=== PATIENT | female | born 1990 | race African-American/Black ===

== ENCOUNTER 2016-06-15 11:53 | Inpatient (IN) | payer MEDICAID ==
[~2016-06-15] VITALS: Ht 160 cm; Wt 63.0 kg
[~2016-06-15 11:53] MED LIST: AML5T PO; CLON0.2T PO; ONDA4TAB5 PO
[2016-06-15] MEDS ORDERED: PANTOPRAZOLE SODIUM 40 MG/10 ML VIAL IV ONE (12:00)
[2016-06-15] MEDS ORDERED: METOCLOPRAMIDE HCL 5MG/ml INJ 2ml VIAL IV ONE (12:00)
[2016-06-15 13:23] LABS: Basophils # (auto) 0 uL; Basophils % (auto) 0.4 % (0.0-2.0); Eosinophils # (auto) 0 uL; Eosinophils % (auto) 0.4 % (0.0-7.0); Hematocrit 30.6 % (36.0-46.0); Hemoglobin 10.3 g/dL (12.2-16.2); Lymphocytes # (auto) 0.7 uL; Lymphocytes % (auto) 8.2 % (10.0-50.0); Mean Corpuscular Hemoglobin 32.7 pg (28.0-32.0); Mean Corpuscular Hgb Conc. 33.6 g/dL (32.0-36.0); Mean Corpuscular Volume 97.4 fL (80.0-100.0); Mean Platelet Volume 7.1 fL (7.4-10.4); Monocytes # (auto) 0.3 uL; Monocytes % (auto) 3.6 % (0.0-12.0); Neutrophils # (auto) 7.4 uL; Neutrophils % (auto) 87.4 % (37.0-80.0); Platelet Count (auto) 249 10^3/uL (140-450); Red Cell Distribution Width 15.1 % (11.6-16.0); White Blood Cell 8.5 10^3/uL (4.4-10.8)
[2016-06-15 13:37] LABS: Albumin 3.6 g/dL (3.4-5.0); BUN/Creatinine Ratio 5.9; Bilirubin, Total 0.6 mg/dL (0.2-1.0); Calcium 8.8 mg/dL (8.5-10.1); Magnesium 2.9 mg/dL (1.6-2.6); Total Protein 7.3 g/dL (6.4-8.2)
[2016-06-15 13:51] LABS: Potassium 6.3 mmol/L (3.5-5.1)
[2016-06-15] MEDS ORDERED: SODIUM BICARBONATE 8.4 % INJ 50ML VIAL IV ONE (14:00)
[2016-06-15] MEDS ORDERED: DEXTROSE (50%) 50ML SYRG IV ONE (14:00)
[2016-06-15] MEDS ORDERED: InsuLIN REG 1unit/0.01ml Soln (100units/ml) IV ONE (14:00)
[2016-06-15] MEDS ORDERED: CALCIUM GLUC 4.65 MEQ/10ML 4.65 MEQ in SODIUM CHL 0.9% 50 ML IV ONE (14:00)
[2016-06-15] MEDS ORDERED: ONDANSETRON HCL 4 MG/2 ML VIAL IV ONE (15:15)
[2016-06-15] MEDS ORDERED: HYDROmorphone HCL 2 MG/ML VL IV ONE (15:15)
[2016-06-15] MEDS ORDERED: cloNIDine HCL 0.1 MG TAB PO PRN (16:15)
[2016-06-15] MEDS ORDERED: LORazepam 2MG/ML-1ML VIAL IV PRN (16:30)
[2016-06-15] MEDS ORDERED: ACETAMINOPHEN 325 MG TAB PO PRN (16:30)
[2016-06-15] MEDS ORDERED: DOCUSATE SOD 100 MG CAP PO PRN (16:30)
[2016-06-15] MEDS ORDERED: NITROGLYCERIN 0.4 MG SL TAB SL PRN (16:30)
[2016-06-15] MEDS ORDERED: HYDROcodone-ACET 5/325MG TAB PO PRN (16:30)
[2016-06-15] MEDS ORDERED: TEMAZEPAM 15 MG CAP PO PRN (16:30)
[2016-06-15] MEDS: SODIUM CHLORIDE 0.9% 1,000 ML IV SCH (16:40)
[2016-06-15] MEDS ORDERED: amLODIPine BESYLATE 5 MG TAB PO ONE (16:45)
[2016-06-15] MEDS ORDERED: DOXYCYCLINE HYC 100MG/250ML 250 ML IV ONE (16:45)
[2016-06-15] MEDS ORDERED: MULTIPLE VITAMIN TAB PO ONE (16:45)
[2016-06-15] MEDS ORDERED: EPOETIN ALFA 2,000 UNIT/1 ML VIAL IV ONE (17:15)
[2016-06-15] MEDS ORDERED: SODIUM CHL 0.9% 1000 ML BAG XX ONE (17:15)
[2016-06-15] MEDS ORDERED: EPOETIN ALFA 3,000 UNIT/1 ML VIAL IV ONE (17:15)
[2016-06-15] MEDS ORDERED: diphenhdrAMINE HCL 50 MG/1 ML VL IV ONE (18:00)
[2016-06-15 20:09] VITALS: BP 194/126
[2016-06-15] MEDS: cloNIDine HCL 0.1 MG TAB PO SCH ×2 (20:11→21:13)
[2016-06-15 23:30] VITALS: BP 134/81
[2016-06-16] VITALS (7 sets, daily range): BP systolic 150–186; BP diastolic 75–111
[2016-06-16] MEDS: HYDROmorphone HCL 2 MG/ML VL IV PRN ×6 (00:08→21:59)
[2016-06-16] MEDS: ONDANSETRON HCL 4 MG/2 ML VIAL IV PRN ×2 (00:19→05:12)
[2016-06-16] MEDS ORDERED: DOXYCYCLINE HYC 100MG/250ML 250 ML IV SCH (06:00)
[2016-06-16 07:15] LABS: Basophils # (auto) 0 uL; Basophils % (auto) 0.7 % (0.0-2.0); Eosinophils # (auto) 0.1 uL; Eosinophils % (auto) 1.5 % (0.0-7.0); Hematocrit 27.6 % (36.0-46.0); Hemoglobin 9.4 g/dL (12.2-16.2); Lymphocytes # (auto) 1.7 uL; Lymphocytes % (auto) 25.8 % (10.0-50.0); Mean Corpuscular Hemoglobin 33.1 pg (28.0-32.0); Mean Corpuscular Volume 97.3 fL (80.0-100.0); Mean Platelet Volume 7.8 fL (7.4-10.4); Monocytes # (auto) 0.4 uL; Monocytes % (auto) 5.5 % (0.0-12.0); Neutrophils # (auto) 4.3 uL; Neutrophils % (auto) 66.5 % (37.0-80.0); Platelet Count (auto) 173 10^3/uL (140-450); Red Cell Distribution Width 14.9 % (11.6-16.0); SUSPECT VIEW TRANSMISSION; White Blood Cell 6.4 10^3/uL (4.4-10.8)
[2016-06-16] MEDS: SODIUM CHLORIDE 0.9% 1,000 ML IV SCH (08:31)
[2016-06-16] MEDS: amLODIPine BESYLATE 5 MG TAB PO SCH (09:25)
[2016-06-16] MEDS: MULTIPLE VITAMIN TAB PO SCH (09:25)
[2016-06-16] MEDS: FAMOTIDINE 20 MG TAB PO SCH (09:26)
[2016-06-16 09:58] LABS: Albumin 3.1 g/dL (3.4-5.0); Bilirubin, Total 0.6 mg/dL (0.2-1.0); Calcium 8.9 mg/dL (8.5-10.1); Potassium 5.1 mmol/L (3.5-5.1); Total Protein 6.7 g/dL (6.4-8.2)
[2016-06-16] MEDS: cloNIDine HCL 0.1 MG TAB PO SCH (22:00)
[2016-06-17] VITALS (7 sets, daily range): BP systolic 134–175; BP diastolic 72–116
[2016-06-17] MEDS: SODIUM CHLORIDE 0.9% 1,000 ML IV SCH (02:01)
[2016-06-17] MEDS: HYDROmorphone HCL 2 MG/ML VL IV PRN ×4 (03:35→18:19)
[2016-06-17] MEDS ORDERED: SODIUM CHL 0.9% 1000 ML BAG XX ONE (05:45)
[2016-06-17] MEDS ORDERED: EPOETIN ALFA 3,000 UNIT/1 ML VIAL IV ONE (05:45)
[2016-06-17] MEDS ORDERED: EPOETIN ALFA 2,000 UNIT/1 ML VIAL IV ONE (05:45)
[2016-06-17 06:07] LABS: Basophils # (auto) 0 uL; Basophils % (auto) 0.7 % (0.0-2.0); Eosinophils # (auto) 0.2 uL; Eosinophils % (auto) 4.5 % (0.0-7.0); Hematocrit 26.3 % (36.0-46.0); Hemoglobin 8.9 g/dL (12.2-16.2); Lymphocytes # (auto) 1.6 uL; Lymphocytes % (auto) 32.1 % (10.0-50.0); Mean Corpuscular Volume 96.9 fL (80.0-100.0); Mean Platelet Volume 7.8 fL (7.4-10.4); Monocytes # (auto) 0.3 uL; Monocytes % (auto) 6.5 % (0.0-12.0); Neutrophils # (auto) 2.7 uL; Neutrophils % (auto) 56.2 % (37.0-80.0); Platelet Count (auto) 198 10^3/uL (140-450); Red Cell Distribution Width 14.8 % (11.6-16.0); White Blood Cell 4.9 10^3/uL (4.4-10.8)
[2016-06-17] MEDS ORDERED: diphenhdrAMINE HCL 50 MG/1 ML VL IV ONE ×2 (06:30→07:00)
[2016-06-17 06:40] LABS: BUN/Creatinine Ratio 5.5; Calcium 8.7 mg/dL (8.5-10.1); Potassium 5.5 mmol/L (3.5-5.1)
[2016-06-17 06:54] LABS: Magnesium 2.6 mg/dL (1.6-2.6)
[2016-06-17] MEDS: FAMOTIDINE 20 MG TAB PO SCH (09:47)
[2016-06-17] MEDS: amLODIPine BESYLATE 5 MG TAB PO SCH (09:47)
[2016-06-17] MEDS: ONDANSETRON HCL 4 MG/2 ML VIAL IV PRN (09:47)
[2016-06-17] MEDS: MULTIPLE VITAMIN TAB PO SCH (09:47)
[2016-06-17] MEDS: cloNIDine HCL 0.1 MG TAB PO SCH (13:36)
== END 2016-06-17 21:04 | disposition home or self-care (01) | DRG 194 ==
LOC: EDUNIT# 11:53 → EDBD 11:53 → ER 11:56 → TELE 11:57 → TELE-WESTW 23:12
PROVIDERS: ADMIT Internal Medicine; ATTEND Internal Medicine
PROC: 5A1D60Z (ICD-10-PCS; principal; 2016-06-15)
DX: I13.2 Hypertensive heart and chronic kidney disease with heart failure and with stage 5 chronic kidney disease, or end stage renal disease (principal); N18.6 End stage renal disease; E86.0 Dehydration; E87.8 Other disorders of electrolyte and fluid balance, not elsewhere classified; I50.9 Heart failure, unspecified; E87.5 Hyperkalemia; D63.1 Anemia in chronic kidney disease; E83.42 Hypomagnesemia; G40.909 Epilepsy, unspecified, not intractable, without status epilepticus; G89.4 Chronic pain syndrome; N83.209 Unspecified ovarian cyst, unspecified side; M54.5 Low back pain; Z59.0 Homelessness; Z99.2 Dependence on renal dialysis; Z91.19 Patient's noncompliance with other medical treatment and regimen; Z98.890 Other specified postprocedural states; Z88.6 Allergy status to analgesic agent; Z88.1 Allergy status to other antibiotic agents; Z84.89 Family history of other specified conditions; Z90.5 Acquired absence of kidney
CPT/HCPCS: 36415; 80048; 80053; 82962; 83605; 83735; 85025; 87400; 90935; 93005; 96365; 96375; 96376; 99291; C9113; J1642; J2405; J3490; Q4081

== ENCOUNTER 2016-06-25 08:17 | Inpatient (IN) | payer MEDICAID ==
[~2016-06-25] VITALS: Ht 160 cm; Wt 56.6 kg
[2016-06-25] MEDS ORDERED: KETOROLAC TROMETH 30 MG/ML 1ML VIAL IV ONE (09:45)
[2016-06-25] MEDS ORDERED: ONDANSETRON HCL 4 MG/2 ML VIAL IV ONE (09:45)
[2016-06-25 10:03] LABS: Basophils # (auto) 0 uL; Basophils % (auto) 0.4 % (0.0-2.0); Eosinophils # (auto) 0.1 uL; Eosinophils % (auto) 2.1 % (0.0-7.0); Hematocrit 34.4 % (36.0-46.0); Hemoglobin 11.5 g/dL (12.2-16.2); Lymphocytes % (auto) 14.6 % (10.0-50.0); Mean Corpuscular Hemoglobin 32.2 pg (28.0-32.0); Mean Corpuscular Hgb Conc. 33.4 g/dL (32.0-36.0); Mean Corpuscular Volume 96.3 fL (80.0-100.0); Mean Platelet Volume 6.7 fL (7.4-10.4); Monocytes # (auto) 0.6 uL; Monocytes % (auto) 9.6 % (0.0-12.0); Neutrophils # (auto) 4.9 uL; Neutrophils % (auto) 73.3 % (37.0-80.0); Platelet Count (auto) 307 10^3/uL (140-450); Red Cell Distribution Width 15.5 % (11.6-16.0); White Blood Cell 6.7 10^3/uL (4.4-10.8)
[2016-06-25 10:21] LABS: Albumin 4.3 g/dL (3.4-5.0); BUN/Creatinine Ratio 6.3; Bilirubin, Total 0.5 mg/dL (0.2-1.0); Potassium 4.9 mmol/L (3.5-5.1); Total Protein 8.7 g/dL (6.4-8.2)
[2016-06-25 10:28] LABS: INR 1.03 (0.9-1.15); Prothrombin Time 10.6 sec (9.37-12.3)
[2016-06-25] MEDS ORDERED: NITROGLYCERIN 0.4 MG SL TAB SL PRN (12:15)
[2016-06-25] MEDS ORDERED: LORazepam 0.5 MG TAB PO PRN (12:15)
[2016-06-25] MEDS ORDERED: FAMOTIDINE (10MG/ML) 2ML VL IV SCH (12:30)
[2016-06-25] MEDS ORDERED: amLODIPine BESYLATE 5 MG TAB PO ONE (12:45)
[2016-06-25] MEDS ORDERED: cloNIDine HCL 0.1 MG TAB PO ONE (12:45)
[2016-06-25] MEDS ORDERED: cefTRIAXone 1GM/50ML D5W 50 ML IV ONE (12:45)
[2016-06-25] MEDS ORDERED: FAMOTIDINE (10MG/ML) 2ML VL IV ONE (12:45)
[2016-06-25 14:21] VITALS: BP 125/74
[2016-06-25 16:39] VITALS: BP 124/77
[2016-06-25] MEDS: metroNIDAZOLE 500MG/100ML 100 ML IV SCH ×2 (16:43→22:10)
[2016-06-25] MEDS: HYDROmorphone HCL 2 MG/ML VL IV PRN ×2 (18:09→22:10)
[2016-06-25] MEDS: PROMETHAZINE HCL 25 MG/ML 1ML IV PRN ×2 (18:12→22:09)
[2016-06-25 21:30] VITALS: BP 105/56
[2016-06-25] MEDS ORDERED: PATIENTS OWN MEDICATION (Clonidine Hydrochloride (Clonidine Hcl) 1 TAB) PO SCH ×2 (22:00)
[2016-06-25] MEDS: cloNIDine HCL 0.1 MG TAB PO SCH (23:11)
[2016-06-26] MEDS: PROMETHAZINE HCL 25 MG/ML 1ML IV PRN ×3 (02:28→13:16)
[2016-06-26] MEDS: HYDROmorphone HCL 2 MG/ML VL IV PRN ×3 (02:28→13:15)
[2016-06-26 05:00] VITALS: BP 118/70
[2016-06-26 05:37] LABS: Basophils # (auto) 0 uL; Basophils % (auto) 0.7 % (0.0-2.0); Eosinophils # (auto) 0.3 uL; Hematocrit 27.9 % (36.0-46.0); Hemoglobin 9.4 g/dL (12.2-16.2); Lymphocytes # (auto) 1.3 uL; Lymphocytes % (auto) 28.8 % (10.0-50.0); Mean Corpuscular Hemoglobin 32.4 pg (28.0-32.0); Mean Corpuscular Hgb Conc. 33.6 g/dL (32.0-36.0); Mean Corpuscular Volume 96.4 fL (80.0-100.0); Mean Platelet Volume 6.6 fL (7.4-10.4); Monocytes # (auto) 0.5 uL; Monocytes % (auto) 11.6 % (0.0-12.0); Neutrophils # (auto) 2.4 uL; Neutrophils % (auto) 52.9 % (37.0-80.0); Platelet Count (auto) 224 10^3/uL (140-450); Red Cell Distribution Width 15.5 % (11.6-16.0); White Blood Cell 4.6 10^3/uL (4.4-10.8)
[2016-06-26 05:51] LABS: INR 1.07 (0.9-1.15); Partial Thromboplastin Time 27.8 sec (22.64-33.71)
[2016-06-26 06:05] LABS: Albumin 3.4 g/dL (3.4-5.0); BUN/Creatinine Ratio 6.4; Bilirubin, Total 0.5 mg/dL (0.2-1.0); Calcium 9.6 mg/dL (8.5-10.1); Potassium 5.1 mmol/L (3.5-5.1); Total Protein 6.9 g/dL (6.4-8.2)
[2016-06-26] MEDS: metroNIDAZOLE 500MG/100ML 100 ML IV SCH ×2 (06:32→15:53)
[2016-06-26 09:00] VITALS: BP 114/73
[2016-06-26] MEDS ORDERED: cefTRIAXone 1GM/50ML D5W 50 ML IV SCH (09:00)
[2016-06-26] MEDS ORDERED: diphenhdrAMINE HCL 50 MG/1 ML VL IV ONE (09:15)
[2016-06-26] MEDS ORDERED: EPOETIN ALFA 10,000 UNIT/1 ML VIAL IV ONE (09:15)
[2016-06-26] MEDS ORDERED: FAMOTIDINE (10MG/ML) 2ML VL IV SCH (10:00)
[2016-06-26] MEDS ORDERED: amLODIPine BESYLATE 5 MG TAB PO SCH (10:00)
[2016-06-26 13:02] VITALS: BP 134/81
[2016-06-26] MEDS: cloNIDine HCL 0.1 MG TAB PO SCH (15:52)
[2016-06-26 17:17] VITALS: BP 124/87
[2016-06-26 20:07] VITALS: BP 124/87
== END 2016-06-26 20:40 | disposition home or self-care (01) | DRG 282 ==
LOC: EDBD 08:17 → ER 08:21 → TELE 08:22 → TELE-WESTW 14:09
PROVIDERS: ADMIT Internal Medicine; ATTEND Internal Medicine
PROC: 5A1D00Z (ICD-10-PCS; principal; 2016-06-26)
DX: K85.90 Acute pancreatitis without necrosis or infection, unspecified (principal); I13.2 Hypertensive heart and chronic kidney disease with heart failure and with stage 5 chronic kidney disease, or end stage renal disease; N18.6 End stage renal disease; R56.9 Unspecified convulsions; B17.9 Acute viral hepatitis, unspecified; K59.00 Constipation, unspecified; I50.9 Heart failure, unspecified; N93.9 Abnormal uterine and vaginal bleeding, unspecified; Z99.2 Dependence on renal dialysis; Z90.5 Acquired absence of kidney; Z98.890 Other specified postprocedural states; Z84.1 Family history of disorders of kidney and ureter; Z88.1 Allergy status to other antibiotic agents; Z88.5 Allergy status to narcotic agent; Z91.018 Allergy to other foods; Z79.899 Other long term (current) drug therapy
CPT/HCPCS: 36415; 71010; 74176; 76856; 80053; 80061; 82150; 83605; 83690; 84484; 84702; 85025; 85049; 85610; 85730; 87040; 87081; 90935; 96374; 96375; J0696; J0885; J1885; J2405; J3490

== ENCOUNTER 2017-05-02 18:10 | Inpatient (IN) | payer SELFPAY ==
[~2017-05-02] VITALS: Ht 160 cm; Wt 64.3 kg
[2017-05-02] MEDS ORDERED: cloNIDine HCL 0.1 MG TAB PO ONE (18:30)
[2017-05-02 19:04] LABS: Basophils # (auto) 0 uL; Basophils % (auto) 0.6 % (0.0-2.0); Eosinophils # (auto) 0.1 uL; Eosinophils % (auto) 1.3 % (0.0-7.0); Hematocrit 27.2 % (36.0-46.0); Hemoglobin 9.1 g/dL (12.2-16.2); Lymphocytes # (auto) 1.6 uL; Lymphocytes % (auto) 22.3 % (10.0-50.0); Mean Corpuscular Hemoglobin 31.7 pg (28.0-32.0); Mean Corpuscular Hgb Conc. 33.5 g/dL (32.0-36.0); Mean Corpuscular Volume 94.7 fL (80.0-100.0); Mean Platelet Volume 7.9 fL (6.9-10.8); Monocytes # (auto) 0.2 uL; Monocytes % (auto) 3.2 % (0.0-12.0); Neutrophils # (auto) 5.3 uL; Neutrophils % (auto) 72.6 % (37.0-80.0); Nucleated Red Blood Cells % 0.2 %; Platelet Count (auto) 307 10^3/uL (140-450); Red Cell Distribution Width 18.7 % (11.8-14.3); White Blood Cell 7.3 10^3/uL (4.4-10.8)
[2017-05-02 19:24] LABS: Albumin 3.5 g/dL (3.4-5.0); BUN/Creatinine Ratio 7.5; Calcium 8.3 mg/dL (8.5-10.1); Potassium 4.7 mmol/L (3.5-5.1); Total Protein 7.8 g/dL (6.4-8.2)
[2017-05-02] MEDS ORDERED: ONDANSETRON HCL 4 MG/2 ML VIAL IV ONE (19:30)
[2017-05-02] MEDS ORDERED: HYDROmorphone HCL 2 MG/ML VL IV ONE (19:30)
[2017-05-02] MEDS: cloNIDine HCL 0.1 MG TAB PO SCH (20:50)
[2017-05-02] MEDS ORDERED: LACTULOSE 20Gm/30ML SOLN PO PRN (21:00)
[2017-05-02] MEDS: LABETALOL HCL 5 MG/ML ML 20ML VIAL IV PRN (22:53)
[2017-05-02] MEDS ORDERED: HYDROcodone-ACET 5/325MG TAB PO PRN (23:30)
[2017-05-03] VITALS (9 sets, daily range): BP systolic 130–201; BP diastolic 81–126
[2017-05-03] MEDS: HYDROmorphone HCL 2 MG/ML VL IV PRN ×5 (00:07→22:23)
[2017-05-03 03:53] LABS: Basophils # (auto) 0.1 uL; Eosinophils # (auto) 0.1 uL; Hematocrit 25.7 % (36.0-46.0); Hemoglobin 8.5 g/dL (12.2-16.2); Lymphocytes # (auto) 1.7 uL; Lymphocytes % (auto) 21.7 % (10.0-50.0); Mean Corpuscular Hemoglobin 32.5 pg (28.0-32.0); Mean Corpuscular Hgb Conc. 33.2 g/dL (32.0-36.0); Mean Platelet Volume 7.5 fL (6.9-10.8); Monocytes # (auto) 0.3 uL; Neutrophils # (auto) 5.5 uL; Neutrophils % (auto) 72.3 % (37.0-80.0); Nucleated Red Blood Cells % 0.2 %; Platelet Count (auto) 277 10^3/uL (140-450); Red Cell Distribution Width 18.6 % (11.8-14.3); White Blood Cell 7.6 10^3/uL (4.4-10.8)
[2017-05-03 04:19] LABS: Albumin 3.4 g/dL (3.4-5.0); BUN/Creatinine Ratio 7.4; Bilirubin, Total 1.1 mg/dL (0.2-1.0); Calcium 7.8 mg/dL (8.5-10.1); Total Protein 7.6 g/dL (6.4-8.2)
[2017-05-03 04:23] LABS: Potassium 5.8 mmol/L (3.5-5.1)
[2017-05-03] MEDS: SEVELAMER 800 MG TAB PO SCH ×3 (08:41→18:52)
[2017-05-03] MEDS: cloNIDine HCL 0.1 MG TAB PO SCH ×2 (09:55→22:23)
[2017-05-03] MEDS: ONDANSETRON HCL 4 MG/2 ML VIAL IV PRN (10:08)
[2017-05-03] MEDS: DOCUSATE SOD 100 MG CAP PO SCH ×3 (13:15→22:00)
[2017-05-03] MEDS ORDERED: SODIUM CHL 0.9% 1000 ML BAG XX ONE (13:45)
[2017-05-03] MEDS ORDERED: EPOETIN ALFA 10,000 UNIT/1 ML VIAL IV ONE (13:45)
[2017-05-03] MEDS ORDERED: diphenhdrAMINE HCL 25 MG CAP PO ONE (15:15)
[2017-05-03] MEDS ORDERED: diphenhdrAMINE HCL 50 MG/1 ML VL IV ONE ×2 (15:45→16:00)
[2017-05-03] MEDS: LABETALOL HCL 5 MG/ML ML 20ML VIAL IV PRN (18:00)
[2017-05-04] MEDS: HYDROmorphone HCL 2 MG/ML VL IV PRN ×4 (03:41→20:51)
[2017-05-04 05:28] VITALS: BP 137/95
[2017-05-04 06:20] LABS: Basophils # (auto) 0.1 uL; Eosinophils # (auto) 0.2 uL; Eosinophils % (auto) 2.7 % (0.0-7.0); Hematocrit 20.9 % (36.0-46.0); Lymphocytes # (auto) 1.2 uL; Lymphocytes % (auto) 22.1 % (10.0-50.0); Mean Corpuscular Hemoglobin 32.8 pg (28.0-32.0); Mean Corpuscular Hgb Conc. 33.6 g/dL (32.0-36.0); Mean Corpuscular Volume 97.8 fL (80.0-100.0); Mean Platelet Volume 7.3 fL (6.9-10.8); Monocytes # (auto) 0.3 uL; Monocytes % (auto) 4.6 % (0.0-12.0); Neutrophils # (auto) 3.8 uL; Neutrophils % (auto) 68.6 % (37.0-80.0); Nucleated Red Blood Cells % 0.3 %; Platelet Count (auto) 254 10^3/uL (140-450); Red Cell Distribution Width 18.8 % (11.8-14.3); White Blood Cell 5.5 10^3/uL (4.4-10.8)
[2017-05-04 06:52] LABS: BUN/Creatinine Ratio 6.3; Bilirubin, Total 0.4 mg/dL (0.2-1.0); Calcium 8.3 mg/dL (8.5-10.1); Potassium 3.9 mmol/L (3.5-5.1); Total Protein 6.6 g/dL (6.4-8.2)
[2017-05-04 08:44] VITALS: BP 146/103
[2017-05-04] MEDS: DOCUSATE SOD 100 MG CAP PO SCH ×2 (10:00→21:41)
[2017-05-04] MEDS: SEVELAMER 800 MG TAB PO SCH ×3 (10:05→18:46)
[2017-05-04] MEDS: cloNIDine HCL 0.1 MG TAB PO SCH ×2 (10:08→21:43)
[2017-05-04] MEDS ORDERED: amLODIPine BESYLATE 5 MG TAB PO ONE (12:45)
[2017-05-04 13:12] LABS: Hepatitis B Surface Antibody Positive
[2017-05-04 14:08] VITALS: BP 147/105
[2017-05-04 15:51] LABS: Hemoglobin 7.9 g/dL (12.2-16.2)
[2017-05-04 16:07] LABS: Hematocrit 23.7 % (36.0-46.0)
[2017-05-04] MEDS ORDERED: SODIUM CHL 0.9% 1000 ML BAG XX ONE (16:45)
[2017-05-04 17:19] VITALS: BP 151/100
[2017-05-04 22:00] VITALS: BP 143/92
[2017-05-05] MEDS: HYDROmorphone HCL 2 MG/ML VL IV PRN ×4 (01:04→22:01)
[2017-05-05 06:32] LABS: Basophils # (auto) 0 uL; Eosinophils # (auto) 0.2 uL; Lymphocytes # (auto) 1.3 uL; Mean Platelet Volume 7.6 fL (6.9-10.8)
[2017-05-05 06:33] LABS: Eosinophils % (auto) 4.4 % (0.0-7.0); Hematocrit 24.2 % (36.0-46.0); Hemoglobin 8.3 g/dL (12.2-16.2); Lymphocytes % (auto) 34.1 % (10.0-50.0); Mean Corpuscular Hemoglobin 33.3 pg (28.0-32.0); Mean Corpuscular Hgb Conc. 34.2 g/dL (32.0-36.0); Mean Corpuscular Volume 97.5 fL (80.0-100.0); Monocytes # (auto) 0.2 uL; Monocytes % (auto) 6.2 % (0.0-12.0); Neutrophils # (auto) 2.1 uL; Neutrophils % (auto) 54.3 % (37.0-80.0); Nucleated Red Blood Cells % 0.2 %; Platelet Count (auto) 233 10^3/uL (140-450); Red Cell Distribution Width 19.2 % (11.8-14.3); White Blood Cell 3.9 10^3/uL (4.4-10.8)
[2017-05-05 07:16] LABS: BUN/Creatinine Ratio 6.4; Bilirubin, Total 0.7 mg/dL (0.2-1.0); Calcium 9.1 mg/dL (8.5-10.1); Magnesium 3.1 mg/dL (1.6-2.6); Total Protein 6.7 g/dL (6.4-8.2)
[2017-05-05 09:00] VITALS: BP 143/102
[2017-05-05] MEDS: DOCUSATE SOD 100 MG CAP PO SCH ×2 (10:04→22:00)
[2017-05-05] MEDS: cloNIDine HCL 0.1 MG TAB PO SCH ×4 (10:05→22:00)
[2017-05-05] MEDS: amLODIPine BESYLATE 5 MG TAB PO SCH (10:05)
[2017-05-05] MEDS: SEVELAMER 800 MG TAB PO SCH ×3 (10:05→18:00)
[2017-05-05] MEDS ORDERED: diphenhdrAMINE HCL 50 MG/1 ML VL IV ONE (11:45)
[2017-05-05] MEDS ORDERED: EPOETIN ALFA 10,000 UNIT/1 ML VIAL IV ONE (11:45)
[2017-05-05 13:00] VITALS: BP 132/97
[2017-05-05 17:00] VITALS: BP 142/98
[2017-05-05 22:00] VITALS: BP 143/104
[2017-05-06] MEDS: HYDROmorphone HCL 2 MG/ML VL IV PRN ×3 (02:15→12:53)
[2017-05-06 05:00] VITALS: BP 129/91
[2017-05-06] MEDS: cloNIDine HCL 0.1 MG TAB PO SCH ×2 (06:17→14:25)
[2017-05-06 08:59] LABS: Hemoglobin 7.3 g/dL (12.2-16.2)
[2017-05-06 09:00] VITALS: BP 117/65
[2017-05-06 09:02] LABS: Hematocrit 21.7 % (36.0-46.0)
[2017-05-06] MEDS: DOCUSATE SOD 100 MG CAP PO SCH (09:05)
[2017-05-06] MEDS: SEVELAMER 800 MG TAB PO SCH ×3 (09:05→18:00)
[2017-05-06] MEDS: amLODIPine BESYLATE 5 MG TAB PO SCH (09:05)
[2017-05-06] MEDS: ONDANSETRON HCL 4 MG/2 ML VIAL IV PRN (09:06)
[2017-05-06 09:19] LABS: Albumin 2.7 g/dL (3.4-5.0); BUN/Creatinine Ratio 6.3; Bilirubin, Total 0.4 mg/dL (0.2-1.0); Calcium 8.8 mg/dL (8.5-10.1); Potassium 4.3 mmol/L (3.5-5.1); Total Protein 6.3 g/dL (6.4-8.2)
[2017-05-06] MEDS ORDERED: DOCU100C8 PO (10:54)
[2017-05-06] MEDS ORDERED: CLON0.2T PO (10:54)
[2017-05-06] MEDS ORDERED: AML5T PO (10:54)
[2017-05-06] MEDS ORDERED: SEVE800T PO (10:54)
[2017-05-06 13:00] VITALS: BP 143/94
[2017-05-06 15:00] VITALS: BP 143/94
[2017-05-06 17:00] VITALS: BP 131/86
== END 2017-05-06 18:35 | disposition home or self-care (01) | DRG 291 ==
LOC: EDBD 18:10 → ER 18:10 → TELE 18:11 → TELE-EAST 05-03 04:02
PROVIDERS: ADMIT Nurse Practitioner; ATTEND Internal Medicine
PROC: 5A1D70Z Performance of Urinary Filtration, Intermittent, Less than 6 Hours Per Day (ICD-10-PCS; principal; 2017-05-03)
PROC: 5A1D70Z Performance of Urinary Filtration, Intermittent, Less than 6 Hours Per Day (ICD-10-PCS; 2017-05-05)
DX: I13.2 Hypertensive heart and chronic kidney disease with heart failure and with stage 5 chronic kidney disease, or end stage renal disease (principal); N18.6 End stage renal disease; E87.5 Hyperkalemia; I50.9 Heart failure, unspecified; K59.00 Constipation, unspecified; G40.909 Epilepsy, unspecified, not intractable, without status epilepticus; R79.89 Other specified abnormal findings of blood chemistry; D63.1 Anemia in chronic kidney disease; Z88.1 Allergy status to other antibiotic agents; Z88.5 Allergy status to narcotic agent; Z91.018 Allergy to other foods; Z84.1 Family history of disorders of kidney and ureter; Z99.2 Dependence on renal dialysis; Z91.14 Patient's other noncompliance with medication regimen
CPT/HCPCS: 36415; 74176; 76705; 80053; 83690; 83735; 84702; 85014; 85018; 85025; 86704; 86706; 86708; 86803; 87081; 87340; 90935; 93005; 94761; 96374; 96375; 96376; J0885; J1642; J2405

== ENCOUNTER 2017-06-24 10:48 | Inpatient (IN) | payer MEDICAID ==
[~2017-06-24] VITALS: Ht 160 cm; Wt 65.3 kg
[~2017-06-24 10:48] MED LIST changes: +DOCU100C8 PO; -ONDA4TAB5 PO; +SEVE800T PO
[2017-06-24] MEDS ORDERED: ONDANSETRON HCL 4 MG/2 ML VIAL IV ONE (11:00)
[2017-06-24] MEDS ORDERED: HYDROmorphone HCL 2 MG/ML VL IV ONE (11:00)
[2017-06-24 11:54] LABS: Basophils # (auto) 0 uL; Basophils % (auto) 0.7 % (0.0-2.0); Eosinophils # (auto) 0.1 uL; Eosinophils % (auto) 1.2 % (0.0-7.0); Hematocrit 30.3 % (36.0-46.0); Hemoglobin 9.6 g/dL (12.2-16.2); Lymphocytes # (auto) 0.9 uL; Lymphocytes % (auto) 15.8 % (10.0-50.0); Mean Corpuscular Hemoglobin 32.2 pg (28.0-32.0); Mean Corpuscular Hgb Conc. 31.6 g/dL (32.0-36.0); Monocytes # (auto) 0.1 uL; Monocytes % (auto) 2.4 % (0.0-12.0); Neutrophils # (auto) 4.4 uL; Neutrophils % (auto) 79.9 % (37.0-80.0); Nucleated Red Blood Cells % 0.3 %; Platelet Count (auto) 162 10^3/uL (140-450); Red Blood Cells 2.97 10^6/uL (4.0-5.20); Red Cell Distribution Width 18.5 % (11.8-14.3); White Blood Cell 5.5 10^3/uL (4.4-10.8)
[2017-06-24 12:26] LABS: Albumin 3.4 g/dL (3.4-5.0); BUN/Creatinine Ratio 4.1; Calcium 9.2 mg/dL (8.5-10.1); Magnesium 2.9 mg/dL (1.6-2.6); Potassium 3.5 mmol/L (3.5-5.1); Total Protein 7.1 g/dL (6.4-8.2)
[2017-06-24] MEDS ORDERED: ACETAMINOPHEN 500 MG TAB PO PRN (13:30)
[2017-06-24] MEDS ORDERED: LACTULOSE 20Gm/30ML SOLN PO PRN ×2 (13:30)
[2017-06-24] MEDS ORDERED: LORazepam 0.5 MG TAB PO PRN (13:30)
[2017-06-24] MEDS ORDERED: NITROGLYCERIN 0.4 MG SL TAB SL PRN (13:30)
[2017-06-24] MEDS ORDERED: ALBUTEROL SULF 2.5 MG/0.5ML(0.5%) NEB SOLN NEB PRN (13:30)
[2017-06-24] MEDS ORDERED: METOPROLOL TARTRATE 25 MG TAB PO ONE (14:00)
[2017-06-24] MEDS ORDERED: DOCUSATE SOD 100 MG CAP PO ONE (14:00)
[2017-06-24] MEDS ORDERED: ASPirin 81 mg TAB PO ONE (14:00)
[2017-06-24] MEDS ORDERED: OSELTAMIVIR 30 MG CAP PO ONE (14:00)
[2017-06-24] MEDS ORDERED: amLODIPine BESYLATE 5 MG TAB PO ONE (14:00)
[2017-06-24 14:24] VITALS: BP 192/144
[2017-06-24] MEDS: cefTRIAXone 1GM/10ml IVPUSH 10 ML IV SCH (14:37)
[2017-06-24] MEDS: SODIUM CHLOR 0.9% PF (SALINE LOCK) 10ML VIAL IV SCH ×2 (14:37→22:07)
[2017-06-24] MEDS: cloNIDine HCL 0.1 MG TAB PO SCH ×2 (14:38→22:06)
[2017-06-24] MEDS: AZITHROMYCIN 500MG/ 250ML 250 ML IV SCH ×2 (14:38→15:03)
[2017-06-24] MEDS: PROMETHAZINE HCL 25 MG/ML 1ML IV PRN ×2 (15:03→23:06)
[2017-06-24] MEDS: HYDROmorphone HCL 2 MG/ML VL IV PRN ×2 (15:03→23:06)
[2017-06-24] MEDS: SEVELAMER 800 MG TAB PO SCH (18:00)
[2017-06-24 18:33] LABS: INR 1.13 (0.9-1.15); Prothrombin Time 12.3 sec (9.37-12.3)
[2017-06-24] MEDS ORDERED: diphenhdrAMINE HCL 25 MG CAP PO PRN (19:15)
[2017-06-24 20:00] VITALS: BP 141/95
[2017-06-24 20:20] VITALS: BP 141/95
[2017-06-24] MEDS: HYDROcodone-ACET 5/325MG TAB PO PRN (21:01)
[2017-06-24 22:00] VITALS: BP 141/95
[2017-06-24] MEDS: DOCUSATE SOD 100 MG CAP PO SCH (22:07)
[2017-06-24] MEDS: ATORVASTATIN 20 MG TAB PO SCH (22:07)
[2017-06-24] MEDS: METOPROLOL TARTRATE 25 MG TAB PO SCH (22:07)
[2017-06-24] MEDS: HEPARIN SODIUM (PORCINE) 5000 UNITS/ML 1ML VIAL SC SCH (22:09)
[2017-06-24] MEDS ORDERED: MEGE40TA15 PO (22:40)
[2017-06-24] MEDS ORDERED: PRO10T PO (22:40)
[2017-06-24] MEDS ORDERED: METO-158 PO (22:40)
[2017-06-25 05:00] VITALS: BP 115/82
[2017-06-25] MEDS: HYDROmorphone HCL 2 MG/ML VL IV PRN ×6 (05:18→22:59)
[2017-06-25] MEDS: PROMETHAZINE HCL 25 MG/ML 1ML IV PRN (05:19)
[2017-06-25] MEDS: SODIUM CHLOR 0.9% PF (SALINE LOCK) 10ML VIAL IV SCH ×3 (06:21→22:44)
[2017-06-25] MEDS: cloNIDine HCL 0.1 MG TAB PO SCH ×3 (06:21→22:44)
[2017-06-25 08:00] VITALS: BP 133/81
[2017-06-25] MEDS: SEVELAMER 800 MG TAB PO SCH ×3 (08:20→17:31)
[2017-06-25] MEDS: cefTRIAXone 1GM/10ml IVPUSH 10 ML IV SCH (08:28)
[2017-06-25 09:00] VITALS: BP 133/81
[2017-06-25] MEDS ORDERED: SODIUM CHL 0.9% 1000 ML BAG XX ONE (09:30)
[2017-06-25] MEDS ORDERED: EPOETIN ALFA 10,000 UNIT/1 ML VIAL IV ONE (09:30)
[2017-06-25] MEDS: ASPirin 81 mg TAB PO SCH (09:38)
[2017-06-25] MEDS: DOCUSATE SOD 100 MG CAP PO SCH ×2 (09:38→22:00)
[2017-06-25] MEDS: amLODIPine BESYLATE 5 MG TAB PO SCH (09:38)
[2017-06-25] MEDS: METOPROLOL TARTRATE 25 MG TAB PO SCH ×2 (09:39→22:43)
[2017-06-25] MEDS: HEPARIN SODIUM (PORCINE) 5000 UNITS/ML 1ML VIAL SC SCH ×3 (10:00→22:49)
[2017-06-25] MEDS ORDERED: OSELTAMIVIR 30 MG CAP PO SCH (10:00)
[2017-06-25 10:40] LABS: Cholesterol 99 mg/dL (< 200); HDL Cholesterol 35 mg/dL (40-59); LDL Cholesterol 60 mg/dL (< 100); Triglycerides 103 mg/dL (< 150)
[2017-06-25 13:00] VITALS: BP 118/83
[2017-06-25] MEDS: NITROGLYCERIN 0.2MG/HR TOPICAL PATCH TD SCH (14:10)
[2017-06-25 16:56] VITALS: BP 148/95
[2017-06-25] MEDS: ATORVASTATIN 20 MG TAB PO SCH (22:42)
[2017-06-25 23:20] VITALS: BP 135/85
[2017-06-26] MEDS: TEMAZEPAM 15 MG CAP PO PRN ×2 (01:13→23:57)
[2017-06-26] MEDS: HYDROmorphone HCL 2 MG/ML VL IV PRN ×5 (03:48→22:37)
[2017-06-26 05:09] VITALS: BP 133/94
[2017-06-26] MEDS: cloNIDine HCL 0.1 MG TAB PO SCH ×3 (06:25→22:00)
[2017-06-26] MEDS: SODIUM CHLOR 0.9% PF (SALINE LOCK) 10ML VIAL IV SCH ×3 (06:25→22:13)
[2017-06-26 08:00] VITALS: BP 125/90
[2017-06-26] MEDS: SEVELAMER 800 MG TAB PO SCH ×3 (08:59→18:28)
[2017-06-26 09:00] VITALS: BP 125/90
[2017-06-26] MEDS: cefTRIAXone 1GM/10ml IVPUSH 10 ML IV SCH (09:04)
[2017-06-26] MEDS: DOCUSATE SOD 100 MG CAP PO SCH ×2 (10:00→22:00)
[2017-06-26] MEDS: AZITHROMYCIN 500MG/ 250ML 250 ML IV SCH (11:10)
[2017-06-26] MEDS: ASPirin 81 mg TAB PO SCH (11:11)
[2017-06-26] MEDS: METOPROLOL TARTRATE 25 MG TAB PO SCH ×2 (11:12→22:12)
[2017-06-26] MEDS: amLODIPine BESYLATE 5 MG TAB PO SCH (11:13)
[2017-06-26] MEDS: NITROGLYCERIN 0.2MG/HR TOPICAL PATCH TD SCH (11:14)
[2017-06-26] MEDS: HYDROcodone-ACET 5/325MG TAB PO PRN (12:44)
[2017-06-26 13:00] VITALS: BP 129/86
[2017-06-26] MEDS ORDERED: KETOROLAC TROMETH 30 MG/ML 1ML VIAL IV ONE (13:45)
[2017-06-26] MEDS: PROMETHAZINE HCL 25 MG/ML 1ML IV PRN ×2 (18:28→22:37)
[2017-06-26 18:35] VITALS: BP 117/79
[2017-06-26 22:00] VITALS: BP 116/74
[2017-06-26] MEDS: ATORVASTATIN 20 MG TAB PO SCH (22:12)
[2017-06-27] VITALS (13 sets, daily range): BP systolic 110–150; BP diastolic 61–109
[2017-06-27] MEDS: HYDROmorphone HCL 2 MG/ML VL IV PRN ×4 (04:08→22:10)
[2017-06-27] MEDS: PROMETHAZINE HCL 25 MG/ML 1ML IV PRN ×4 (04:09→22:10)
[2017-06-27] MEDS: SODIUM CHLOR 0.9% PF (SALINE LOCK) 10ML VIAL IV SCH ×3 (06:28→22:08)
[2017-06-27] MEDS: cloNIDine HCL 0.1 MG TAB PO SCH ×3 (06:29→22:09)
[2017-06-27] MEDS: SEVELAMER 800 MG TAB PO SCH ×3 (08:00→17:36)
[2017-06-27] MEDS: cefTRIAXone 1GM/10ml IVPUSH 10 ML IV SCH (08:29)
[2017-06-27] MEDS ORDERED: LIDOCAINE 2%HCL (LOCAL ANESTH.) INJ 20ML MDV ONE (09:13)
[2017-06-27] MEDS ORDERED: IOHEXOL 350 MG/ML 100ML IJ ONE (09:13)
[2017-06-27] MEDS ORDERED: MIDAZOLAM HCL 1MG/1ML-2 ML VIAL ONE (09:33)
[2017-06-27] MEDS ORDERED: fentaNYL CITRATE 100 MCG/2 ML VL ONE (09:33)
[2017-06-27] MEDS ORDERED: ANGIOMAX 250 MG VIAL IV ONE (09:33)
[2017-06-27] MEDS ORDERED: IODIXANOL 320MG/ML 100ML BTL IV ONE (09:38)
[2017-06-27] MEDS: ASPirin 81 mg TAB PO SCH (10:00)
[2017-06-27] MEDS: HEPARIN SODIUM (PORCINE) 5000 UNITS/ML 1ML VIAL SC SCH ×2 (10:00→22:00)
[2017-06-27] MEDS: DOCUSATE SOD 100 MG CAP PO SCH ×2 (10:00→22:00)
[2017-06-27 11:35] LABS: Basophils # (auto) 0.1 uL; Basophils % (auto) 1.3 % (0.0-2.0); Eosinophils # (auto) 0.4 uL; Eosinophils % (auto) 8.5 % (0.0-7.0); Hematocrit 28.2 % (36.0-46.0); Hemoglobin 9.2 g/dL (12.2-16.2); Lymphocytes # (auto) 1.4 uL; Lymphocytes % (auto) 30.6 % (10.0-50.0); Mean Corpuscular Hemoglobin 31.9 pg (28.0-32.0); Mean Corpuscular Hgb Conc. 32.4 g/dL (32.0-36.0); Mean Corpuscular Volume 98.5 fL (80.0-100.0); Monocytes # (auto) 0.3 uL; Monocytes % (auto) 7.7 % (0.0-12.0); Neutrophils # (auto) 2.3 uL; Neutrophils % (auto) 51.9 % (37.0-80.0); Nucleated Red Blood Cells % 0.1 %; Platelet Count (auto) 192 10^3/uL (140-450); Red Blood Cells 2.87 10^6/uL (4.0-5.20); Red Cell Distribution Width 17.1 % (11.8-14.3); White Blood Cell 4.4 10^3/uL (4.4-10.8)
[2017-06-27] MEDS: amLODIPine BESYLATE 5 MG TAB PO SCH (11:48)
[2017-06-27 11:59] LABS: BUN/Creatinine Ratio 4.1; Calcium 8.8 mg/dL (8.5-10.1); Potassium 3.5 mmol/L (3.5-5.1)
[2017-06-27] MEDS: AZITHROMYCIN 500MG/ 250ML 250 ML IV SCH (12:47)
[2017-06-27] MEDS: METOPROLOL TARTRATE 25 MG TAB PO SCH ×2 (12:48→22:00)
[2017-06-27] MEDS: NITROGLYCERIN 0.2MG/HR TOPICAL PATCH TD SCH (13:07)
[2017-06-27 18:59] LABS: Free T4 (Free Thyroxine) 1.23 ng/dL (0.89-1.76); T3 Total 0.98 ng/mL (0.60-1.81)
[2017-06-27] MEDS: ATORVASTATIN 20 MG TAB PO SCH (22:09)
[2017-06-28] MEDS: TEMAZEPAM 15 MG CAP PO PRN (01:24)
[2017-06-28 05:00] VITALS: BP 124/84
[2017-06-28] MEDS: cloNIDine HCL 0.1 MG TAB PO SCH ×2 (05:40→15:17)
[2017-06-28] MEDS: SODIUM CHLOR 0.9% PF (SALINE LOCK) 10ML VIAL IV SCH ×2 (05:41→14:39)
[2017-06-28] MEDS: HYDROmorphone HCL 2 MG/ML VL IV PRN ×2 (06:33→12:42)
[2017-06-28] MEDS: PROMETHAZINE HCL 25 MG/ML 1ML IV PRN ×2 (06:33→12:43)
[2017-06-28 08:26] VITALS: BP 136/89
[2017-06-28 09:04] VITALS: BP 136/89
[2017-06-28] MEDS: SEVELAMER 800 MG TAB PO SCH ×2 (09:45→12:32)
[2017-06-28] MEDS: ASPirin 81 mg TAB PO SCH (09:46)
[2017-06-28] MEDS: amLODIPine BESYLATE 5 MG TAB PO SCH (09:46)
[2017-06-28] MEDS: METOPROLOL TARTRATE 25 MG TAB PO SCH (09:46)
[2017-06-28] MEDS: cefTRIAXone 1GM/10ml IVPUSH 10 ML IV SCH (09:47)
[2017-06-28] MEDS: HEPARIN SODIUM (PORCINE) 5000 UNITS/ML 1ML VIAL SC SCH (09:47)
[2017-06-28] MEDS: AZITHROMYCIN 500MG/ 250ML 250 ML IV SCH (09:47)
[2017-06-28] MEDS: DOCUSATE SOD 100 MG CAP PO SCH (09:48)
[2017-06-28] MEDS ORDERED: SODIUM CHL 0.9% 1000 ML BAG XX ONE (10:00)
[2017-06-28] MEDS ORDERED: EPOETIN ALFA 10,000 UNIT/1 ML VIAL IV ONE (10:00)
[2017-06-28] MEDS ORDERED: diphenhdrAMINE HCL 50 MG/1 ML VL IV ONE ×2 (10:15→11:30)
[2017-06-28 14:59] VITALS: BP 128/78
[2017-06-28 16:43] VITALS: BP 136/89
[2017-06-28 17:00] VITALS: BP 130/94
== END 2017-06-28 17:35 | disposition home or self-care (01) | DRG 192 ==
LOC: EDBD 10:48 → ER 10:48 → TELE 10:49 → TELE-WESTW 19:43
PROVIDERS: ADMIT Internal Medicine; ATTEND Internal Medicine Pulmonary Disease
PROC: 5A1D70Z Performance of Urinary Filtration, Intermittent, Less than 6 Hours Per Day (ICD-10-PCS; 2017-06-25)
PROC: 4A023N7 Measurement of Cardiac Sampling and Pressure, Left Heart, Percutaneous Approach (ICD-10-PCS; principal; 2017-06-27)
PROC: B2111ZZ Fluoroscopy of Multiple Coronary Arteries using Low Osmolar Contrast (ICD-10-PCS; 2017-06-27)
PROC: B2151ZZ Fluoroscopy of Left Heart using Low Osmolar Contrast (ICD-10-PCS; 2017-06-27)
PROC: B41F1ZZ Fluoroscopy of Right Lower Extremity Arteries using Low Osmolar Contrast (ICD-10-PCS; 2017-06-27)
PROC: 5A1D70Z Performance of Urinary Filtration, Intermittent, Less than 6 Hours Per Day (ICD-10-PCS; 2017-06-28)
DX: I13.2 Hypertensive heart and chronic kidney disease with heart failure and with stage 5 chronic kidney disease, or end stage renal disease (principal); J18.9 Pneumonia, unspecified organism; N18.6 End stage renal disease; E87.1 Hypo-osmolality and hyponatremia; D63.1 Anemia in chronic kidney disease; F41.9 Anxiety disorder, unspecified; G40.909 Epilepsy, unspecified, not intractable, without status epilepticus; K59.00 Constipation, unspecified; G47.00 Insomnia, unspecified; Z99.2 Dependence on renal dialysis; Z59.0 Homelessness; Z90.5 Acquired absence of kidney; Z91.15 Patient's noncompliance with renal dialysis; Z88.1 Allergy status to other antibiotic agents; Z88.5 Allergy status to narcotic agent; Z91.018 Allergy to other foods; Z79.899 Other long term (current) drug therapy; Z84.1 Family history of disorders of kidney and ureter
CPT/HCPCS: 93458; 96365; 96375; 99285; G0278; 36415; 36600; 71046; 80048; 80053; 80061; 82550; 82805; 83516; 83735; 84439; 84443; 84480; 84484; 85025; 85379; 85610; 85652; 86141; 86225; 86235; 87081; 87400; 90935; 93005; 93306; 94761; 99152; G9035; J0885; J1642; J2250; J2405; Q9967

== ENCOUNTER 2017-07-04 21:15 | Inpatient (IN) | payer MEDICAID ==
[~2017-07-04] VITALS: Ht 160 cm; Wt 59.6 kg
[~2017-07-04 21:15] MED LIST changes: +MEGE40TA15 PO; +METO-158 PO; +PRO10T PO
[2017-07-04] MEDS ORDERED: SODIUM CHLORIDE 0.9% 1,000 ML IV ONE (22:45)
[2017-07-04] MEDS ORDERED: MORPHINE SULFATE 10 MG/ML INJ 1ML SDV IV ONE (22:45)
[2017-07-04] MEDS ORDERED: ONDANSETRON HCL 4 MG/2 ML VIAL IV ONE (22:45)
[2017-07-04 22:48] LABS: Basophils # (auto) 0.1 uL; Eosinophils # (auto) 0.1 uL; Eosinophils % (auto) 0.5 % (0.0-7.0); Hematocrit 33.4 % (36.0-46.0); Lymphocytes # (auto) 0.8 uL; Lymphocytes % (auto) 5.8 % (10.0-50.0); Mean Corpuscular Hemoglobin 31.7 pg (28.0-32.0); Mean Corpuscular Hgb Conc. 32.9 g/dL (32.0-36.0); Mean Corpuscular Volume 96.4 fL (80.0-100.0); Monocytes # (auto) 0.5 uL; Monocytes % (auto) 3.3 % (0.0-12.0); Neutrophils # (auto) 12.6 uL; Neutrophils % (auto) 89.4 % (37.0-80.0); Nucleated Red Blood Cells % 0.1 %; Platelet Count (auto) 332 10^3/uL (140-450); Red Blood Cells 3.47 10^6/uL (4.0-5.20); Red Cell Distribution Width 17.3 % (11.8-14.3); White Blood Cell 14.1 10^3/uL (4.4-10.8)
[2017-07-04] MEDS ORDERED: HYDROmorphone HCL 2 MG/ML VL IV ONE (23:00)
[2017-07-04 23:02] LABS: Albumin 4.2 g/dL (3.4-5.0); BUN/Creatinine Ratio 4.3; Calcium 10.2 mg/dL (8.5-10.1); Potassium 4.1 mmol/L (3.5-5.1)
[2017-07-04] MEDS ORDERED: HYDROmorphone HCL 2 MG/ML VL ONE (23:03)
[2017-07-04 23:05] LABS: Bilirubin, Total 1.3 mg/dL (0.2-1.0); Total Protein 8.6 g/dL (6.4-8.2)
[2017-07-05] MEDS ORDERED: PROMETHAZINE HCL 25 MG/ML 1ML IV ONE (01:15)
[2017-07-05] MEDS ORDERED: HYDROmorphone HCL 2 MG/ML VL IV ONE ×3 (01:15→21:00)
[2017-07-05] MEDS ORDERED: LACTULOSE 20Gm/30ML SOLN PO PRN (04:15)
[2017-07-05] MEDS ORDERED: ONDANSETRON HCL 4 MG/2 ML VIAL IV PRN (04:15)
[2017-07-05] MEDS ORDERED: cloNIDine HCL 0.1 MG TAB PO PRN (04:15)
[2017-07-05] MEDS ORDERED: ACETAMINOPHEN 500 MG TAB PO PRN (04:15)
[2017-07-05 05:02] LABS: Basophils # (auto) 0.1 uL; Basophils % (auto) 0.4 % (0.0-2.0); Eosinophils # (auto) 0 uL; Eosinophils % (auto) 0.1 % (0.0-7.0); Hematocrit 29.5 % (36.0-46.0); Hemoglobin 9.8 g/dL (12.2-16.2); Lymphocytes # (auto) 0.7 uL; Lymphocytes % (auto) 4.5 % (10.0-50.0); Mean Corpuscular Hemoglobin 32.6 pg (28.0-32.0); Mean Corpuscular Hgb Conc. 33.2 g/dL (32.0-36.0); Mean Corpuscular Volume 98.2 fL (80.0-100.0); Monocytes # (auto) 0.3 uL; Monocytes % (auto) 2.4 % (0.0-12.0); Neutrophils # (auto) 13.5 uL; Neutrophils % (auto) 92.6 % (37.0-80.0); Platelet Count (auto) 265 10^3/uL (140-450); Red Cell Distribution Width 17.6 % (11.8-14.3); White Blood Cell 14.5 10^3/uL (4.4-10.8)
[2017-07-05 05:22] LABS: Albumin 3.6 g/dL (3.4-5.0); BUN/Creatinine Ratio 4.3; Calcium 9.1 mg/dL (8.5-10.1); Potassium 5.4 mmol/L (3.5-5.1)
[2017-07-05 05:25] LABS: Bilirubin, Total 1.1 mg/dL (0.2-1.0); Total Protein 7.5 g/dL (6.4-8.2)
[2017-07-05] MEDS ORDERED: LABETALOL HCL 5 MG/ML ML 20ML VIAL IV PRN (07:30)
[2017-07-05] MEDS: SEVELAMER 800 MG TAB PO SCH ×3 (07:37→18:07)
[2017-07-05] MEDS: cloNIDine HCL 0.1 MG TAB PO SCH ×3 (07:41→22:12)
[2017-07-05] MEDS ORDERED: amLODIPine BESYLATE 5 MG TAB PO SCH (10:00)
[2017-07-05] MEDS ORDERED: METOPROLOL TARTRATE 25 MG TAB PO SCH (10:00)
[2017-07-05] MEDS ORDERED: METOPROLOL TARTRATE 50 MG TAB PO SCH (10:00)
[2017-07-05] MEDS ORDERED: HEPARIN SODIUM (PORCINE) 5000 UNITS/ML 1ML VIAL IV ONE (10:30)
[2017-07-05] MEDS ORDERED: EPOETIN ALFA 10,000 UNIT/1 ML VIAL IV ONE (10:30)
[2017-07-05 13:30] VITALS: BP 171/106
[2017-07-05] MEDS: AZITHROMYCIN 500MG/ 250ML 250 ML IV SCH (13:37)
[2017-07-05] MEDS: HYDROcodone-ACET 5/325MG TAB PO PRN ×2 (13:38→18:07)
[2017-07-05 14:08] VITALS: BP 181/96
[2017-07-05 14:50] VITALS: BP 171/106
[2017-07-05 16:43] VITALS: BP 135/82
[2017-07-05 19:49] LABS: Basophils # (auto) 0.1 uL; Eosinophils # (auto) 0.1 uL; Eosinophils % (auto) 1.3 % (0.0-7.0); Lymphocytes # (auto) 1.6 uL; Lymphocytes % (auto) 22.3 % (10.0-50.0); Mean Corpuscular Hemoglobin 31.9 pg (28.0-32.0); Mean Corpuscular Hgb Conc. 32.2 g/dL (32.0-36.0); Mean Corpuscular Volume 99.1 fL (80.0-100.0); Monocytes # (auto) 0.4 uL; Neutrophils # (auto) 4.9 uL; Neutrophils % (auto) 69.4 % (37.0-80.0); Platelet Count (auto) 196 10^3/uL (140-450); Red Blood Cells 2.82 10^6/uL (4.0-5.20); Red Cell Distribution Width 17.7 % (11.8-14.3); White Blood Cell 7.1 10^3/uL (4.4-10.8)
[2017-07-05 20:06] LABS: Albumin 3.3 g/dL (3.4-5.0); BUN/Creatinine Ratio 3.8; Calcium 8.6 mg/dL (8.5-10.1); Potassium 3.7 mmol/L (3.5-5.1)
[2017-07-05 20:29] LABS: Bilirubin, Total 0.9 mg/dL (0.2-1.0); Total Protein 6.8 g/dL (6.4-8.2)
[2017-07-05 22:00] VITALS: BP 139/94
[2017-07-05] MEDS: METOPROLOL TARTRATE 50 MG TAB PO SCH (22:13)
[2017-07-06] MEDS: HYDROcodone-ACET 5/325MG TAB PO PRN (04:37)
[2017-07-06 04:54] VITALS: BP 125/83
[2017-07-06] MEDS: cloNIDine HCL 0.1 MG TAB PO SCH ×3 (05:46→21:36)
[2017-07-06] MEDS: SEVELAMER 800 MG TAB PO SCH ×3 (07:56→18:11)
[2017-07-06 08:00] VITALS: BP 139/96
[2017-07-06 08:30] VITALS: BP 139/96
[2017-07-06] MEDS: METOPROLOL TARTRATE 50 MG TAB PO SCH ×2 (10:13→21:37)
[2017-07-06] MEDS: AZITHROMYCIN 500MG/ 250ML 250 ML IV SCH (10:18)
[2017-07-06] MEDS: amLODIPine BESYLATE 5 MG TAB PO SCH (10:18)
[2017-07-06] MEDS: HYDROcodone-ACET 7.5/325MG TAB PO PRN ×2 (11:41→18:12)
[2017-07-06] MEDS: metroNIDAZOLE 500MG/100ML 100 ML IV SCH ×2 (12:14→18:11)
[2017-07-06 12:30] VITALS: BP 93/55
[2017-07-06] MEDS ORDERED: GOLYTELY 4L KIT PO ONE (14:15)
[2017-07-06 17:11] VITALS: BP 123/74
[2017-07-07] VITALS (7 sets, daily range): BP systolic 120–150; BP diastolic 60–105
[2017-07-07] MEDS: metroNIDAZOLE 500MG/100ML 100 ML IV SCH ×4 (00:38→18:00)
[2017-07-07] MEDS ORDERED: GOLYTELY 4L KIT PO ONE (06:00)
[2017-07-07] MEDS: cloNIDine HCL 0.1 MG TAB PO SCH ×2 (06:04→07:25)
[2017-07-07] MEDS: SEVELAMER 800 MG TAB PO SCH ×3 (08:00→18:00)
[2017-07-07] MEDS ORDERED: diphenhdrAMINE HCL 50 MG/1 ML VL ONE (08:31)
[2017-07-07] MEDS ORDERED: SODIUM CHLORIDE LOCK 10 ML ONE (08:31)
[2017-07-07 10:17] LABS: INR 1.05 (0.9-1.15); Partial Thromboplastin Time 26.8 sec (22.64-33.71); Prothrombin Time 11.4 sec (9.37-12.3)
[2017-07-07] MEDS: fentaNYL CITRATE 100 MCG/2 ML VL ONE ×3 (11:07→11:14)
[2017-07-07] MEDS: MIDAZOLAM HCL 5 MG/ML-1ML VIAL ONE ×3 (11:07→11:14)
[2017-07-07] MEDS: METOPROLOL TARTRATE 50 MG TAB PO SCH (12:29)
[2017-07-07] MEDS: amLODIPine BESYLATE 5 MG TAB PO SCH (12:30)
[2017-07-07] MEDS ORDERED: SODIUM CHL 0.9% 1000 ML BAG XX ONE (13:15)
[2017-07-07] MEDS ORDERED: EPOETIN ALFA 10,000 UNIT/1 ML VIAL IV ONE (13:15)
[2017-07-07] MEDS ORDERED: diphenhdrAMINE HCL 50 MG/1 ML VL IV ONE (13:45)
[2017-07-07] MEDS ORDERED: LIDOCAINE 2%HCL (LOCAL ANESTH.) INJ 20ML MDV IJ ONE (13:45)
== END 2017-07-07 20:00 | disposition home or self-care (01) | DRG 139 ==
LOC: ER 21:15 → EDBD 21:15 → UNDOADMIN 21:16 → WEST WING 21:16 → OVERFLOW 21:16
PROVIDERS: ADMIT Nurse Practitioner Family; ATTEND Internal Medicine Pulmonary Disease
PROC: 5A1D70Z Performance of Urinary Filtration, Intermittent, Less than 6 Hours Per Day (ICD-10-PCS; 2017-07-05)
PROC: 5A1D70Z Performance of Urinary Filtration, Intermittent, Less than 6 Hours Per Day (ICD-10-PCS; 2017-07-07)
PROC: 0DJD8ZZ Inspection of Lower Intestinal Tract, Via Natural or Artificial Opening Endoscopic (ICD-10-PCS; principal; 2017-07-07 11:04)
DX: J18.9 Pneumonia, unspecified organism (principal); I13.2 Hypertensive heart and chronic kidney disease with heart failure and with stage 5 chronic kidney disease, or end stage renal disease; N18.6 End stage renal disease; K86.1 Other chronic pancreatitis; E44.1 Mild protein-calorie malnutrition; E87.1 Hypo-osmolality and hyponatremia; R56.9 Unspecified convulsions; N83.202 Unspecified ovarian cyst, left side; I50.9 Heart failure, unspecified; E87.5 Hyperkalemia; G89.29 Other chronic pain; K59.00 Constipation, unspecified; Z99.2 Dependence on renal dialysis; Z68.23 Body mass index [BMI] 23.0-23.9, adult
CPT/HCPCS: 36415; 45378; 71045; 74176; 80053; 82150; 83690; 84702; 85025; 85610; 85730; 87081; 90935; 96361; 96374; 96375; 96376; J0885; J1642; J2250; J2405; J3490

== ENCOUNTER 2017-07-18 11:09 | Inpatient (IN) | payer MEDICAID ==
[~2017-07-18] VITALS: Ht 160 cm; Wt 57.7 kg
[2017-07-18] MEDS ORDERED: KETOROLAC TROMETH 30 MG/ML 1ML VIAL IV ONE (13:00)
[2017-07-18] MEDS ORDERED: cloNIDine HCL 0.1 MG TAB PO ONE (13:00)
[2017-07-18] MEDS ORDERED: LABETALOL HCL 5 MG/ML ML 20ML VIAL IV ONE (13:45)
[2017-07-18] MEDS ORDERED: LOSA100T27 PO (14:20)
[2017-07-18] MEDS ORDERED: HYDR-4298 PO (14:20)
[2017-07-18] MEDS ORDERED: SEVE800T PO (14:20)
[2017-07-18] MEDS ORDERED: VANCOMYCIN PER PHARMACY 0 MG IV SCH (14:30)
[2017-07-18] MEDS ORDERED: LEVOFLOXACIN 250MG 50 ML IV ONE (14:30)
[2017-07-18] MEDS ORDERED: LORazepam 2MG/ML-1ML VIAL IV PRN (14:45)
[2017-07-18] MEDS ORDERED: NITROGLYCERIN 0.4 MG SL TAB SL PRN (14:45)
[2017-07-18] MEDS ORDERED: HYDROmorphone HCL 2 MG/ML VL IV PRN (14:45)
[2017-07-18] MEDS ORDERED: ONDANSETRON HCL 4 MG/2 ML VIAL IV PRN (14:45)
[2017-07-18] MEDS ORDERED: ACETAMINOPHEN 325 MG TAB PO PRN (14:45)
[2017-07-18] MEDS ORDERED: DOCUSATE SOD 100 MG CAP PO PRN (14:45)
[2017-07-18] MEDS ORDERED: TEMAZEPAM 15 MG CAP PO PRN (14:45)
[2017-07-18 14:58] LABS: Basophils # (auto) 0.1 uL; Basophils % (auto) 1.4 % (0.0-2.0); Eosinophils # (auto) 0.2 uL; Eosinophils % (auto) 4.6 % (0.0-7.0); Hematocrit 26.6 % (36.0-46.0); Hemoglobin 8.9 g/dL (12.2-16.2); Lymphocytes # (auto) 1.1 uL; Lymphocytes % (auto) 19.9 % (10.0-50.0); Mean Corpuscular Hemoglobin 32.8 pg (28.0-32.0); Mean Corpuscular Hgb Conc. 33.5 g/dL (32.0-36.0); Mean Corpuscular Volume 97.8 fL (80.0-100.0); Monocytes # (auto) 0.1 uL; Monocytes % (auto) 2.1 % (0.0-12.0); Neutrophils # (auto) 3.8 uL; Nucleated Red Blood Cells % 0.1 %; Platelet Count (auto) 174 10^3/uL (140-450); Red Blood Cells 2.72 10^6/uL (4.0-5.20); Red Cell Distribution Width 15.9 % (11.8-14.3); White Blood Cell 5.3 10^3/uL (4.4-10.8)
[2017-07-18 15:03] LABS: INR 1.09 (0.9-1.15); Partial Thromboplastin Time 27.2 sec (22.64-33.71); Prothrombin Time 11.9 sec (9.37-12.3)
[2017-07-18] MEDS ORDERED: LEVOFLOXACIN 500MG 100 ML IV ONE (15:15)
[2017-07-18 15:19] LABS: Albumin 3.4 g/dL (3.4-5.0); BUN/Creatinine Ratio 4.2; Bilirubin, Total 1.8 mg/dL (0.2-1.0); Calcium 9.1 mg/dL (8.5-10.1); Potassium 4.5 mmol/L (3.5-5.1); Total Protein 7.3 g/dL (6.4-8.2)
[2017-07-18] MEDS: cloNIDine HCL 0.1 MG TAB PO SCH ×2 (15:53→22:18)
[2017-07-18] MEDS: FAMOTIDINE 20 MG TAB PO SCH (15:53)
[2017-07-18] MEDS ORDERED: VANCOMYCIN 750 MG in D5W 5% 250 ML IV ONE (16:30)
[2017-07-18 17:24] VITALS: BP 159/112
[2017-07-18 17:50] VITALS: BP 159/112
[2017-07-18] MEDS: IPRATROPIUM BROM 0.5 MG/2.5ML INH SOL NEB SCH (18:00)
[2017-07-18] MEDS: ALBUTEROL SULF 2.5 MG/0.5ML(0.5%) NEB SOLN NEB SCH (18:00)
[2017-07-18] MEDS: SEVELAMER 800 MG TAB PO SCH (18:15)
[2017-07-18] MEDS ORDERED: LIDOCAINE 1% HCL (LOCAL ANESTH.) INJ 20ML MDV ID ONE (19:30)
[2017-07-18] MEDS: HYDROcodone-ACET 5/325MG TAB PO PRN (20:37)
[2017-07-18 21:26] LABS: Lactic Acid w/Reflex 2.7 mmol/L (0.4-2.0)
[2017-07-18 22:00] VITALS: BP 167/124
[2017-07-18] MEDS ORDERED: FAMOTIDINE 20 MG TAB PO SCH (22:00)
[2017-07-18] MEDS: hydrALAZINE HCL 25 MG TAB PO SCH (22:17)
[2017-07-18] MEDS: SODIUM CHLOR 0.9% PF (SALINE LOCK) 10ML VIAL IV SCH ×2 (22:18)
[2017-07-19] MEDS ORDERED: MORPHINE SULFATE 4 MG/ML SYR/VIAL IV ONE
[2017-07-19] MEDS ORDERED: diphenhdrAMINE HCL 50 MG/1 ML VL IV ONE
[2017-07-19] MEDS: IPRATROPIUM BROM 0.5 MG/2.5ML INH SOL NEB SCH ×2 (00:20→07:27)
[2017-07-19] MEDS: ALBUTEROL SULF 2.5 MG/0.5ML(0.5%) NEB SOLN NEB SCH ×2 (00:20→07:27)
[2017-07-19 00:25] VITALS: BP 167/124
[2017-07-19 04:08] LABS: Hematocrit 17.2 % (36.0-46.0); White Blood Cell 3.9 10^3/uL (4.4-10.8)
[2017-07-19 04:09] LABS: Mean Corpuscular Hemoglobin 32.8 pg (28.0-32.0); Mean Corpuscular Hgb Conc. 33.7 g/dL (32.0-36.0); Mean Corpuscular Volume 97.2 fL (80.0-100.0); Platelet Count (auto) 141 10^3/uL (140-450); Red Blood Cells 1.77 10^6/uL (4.0-5.20); Red Cell Distribution Width 15.7 % (11.8-14.3)
[2017-07-19 04:14] LABS: Hemoglobin 5.8 g/dL (12.2-16.2)
[2017-07-19 04:16] LABS: Basophils % (manual) 0 (0.0-2.0); Blast Cells 0; Metamyelocytes % 0; Myelocytes % 0; Promyelocytes % 0; Reactive Lymphocytes 0
[2017-07-19 04:54] LABS: Albumin 2.6 g/dL (3.4-5.0); Calcium 7.6 mg/dL (8.5-10.1); Potassium 4.4 mmol/L (3.5-5.1)
[2017-07-19 04:57] LABS: BUN/Creatinine Ratio 4.8; Bilirubin, Total 1.2 mg/dL (0.2-1.0); Total Protein 5.3 g/dL (6.4-8.2)
[2017-07-19 05:00] VITALS: BP 153/106
[2017-07-19 05:11] LABS: Band Neutrophils % (manual) 1; Eosinophils % (manual) 6 (0-7); Lymphocytes % (manual) 21 (10.0-50.0); Monocytes % (manual) 2 (0-12)
[2017-07-19] MEDS: cloNIDine HCL 0.1 MG TAB PO SCH ×3 (06:35→22:07)
[2017-07-19] MEDS: SODIUM CHLOR 0.9% PF (SALINE LOCK) 10ML VIAL IV SCH ×5 (06:35→22:23)
[2017-07-19 07:05] LABS: Basophils # (auto) 0.1 uL; Basophils % (auto) 1.7 % (0.0-2.0); Eosinophils # (auto) 0.3 uL; Lymphocytes % (auto) 24.6 % (10.0-50.0); Monocytes # (auto) 0.1 uL; Neutrophils # (auto) 2.6 uL; Nucleated Red Blood Cells % 0.2 %; Platelet Count (auto) 146 10^3/uL (140-450)
[2017-07-19 07:09] LABS: Eosinophils % (auto) 8.3 % (0.0-7.0); Hematocrit 23.5 % (36.0-46.0); Mean Corpuscular Hgb Conc. 34.1 g/dL (32.0-36.0); Mean Corpuscular Volume 96.7 fL (80.0-100.0); Monocytes % (auto) 3.5 % (0.0-12.0); Neutrophils % (auto) 61.9 % (37.0-80.0); Red Blood Cells 2.43 10^6/uL (4.0-5.20); Red Cell Distribution Width 15.5 % (11.8-14.3); White Blood Cell 4.1 10^3/uL (4.4-10.8)
[2017-07-19 07:46] LABS: Albumin 3.1 g/dL (3.4-5.0); BUN/Creatinine Ratio 4.6; Bilirubin, Total 1.2 mg/dL (0.2-1.0); Calcium 8.6 mg/dL (8.5-10.1); Potassium 4.8 mmol/L (3.5-5.1); Total Protein 6.7 g/dL (6.4-8.2)
[2017-07-19] MEDS: MORPHINE SULFATE 4 MG/ML SYR/VIAL IV PRN ×4 (08:12→22:44)
[2017-07-19] MEDS: SEVELAMER 800 MG TAB PO SCH ×3 (08:19→18:00)
[2017-07-19] MEDS: diphenhdrAMINE HCL 50 MG/1 ML VL IV PRN ×4 (08:22→22:44)
[2017-07-19 09:00] VITALS: BP 149/108
[2017-07-19] MEDS ORDERED: LOSARTAN POTASSIUM 50 MG TAB PO SCH (10:00)
[2017-07-19] MEDS: B-COMPLEX W/ C & FOLIC ACID(NEPHROVITE TAB) PO SCH (10:03)
[2017-07-19] MEDS: hydrALAZINE HCL 25 MG TAB PO SCH ×2 (10:05→22:23)
[2017-07-19] MEDS: FAMOTIDINE 20 MG TAB PO SCH (10:06)
[2017-07-19] MEDS ORDERED: LOSARTAN POTASSIUM 50 MG TAB PO ONE (11:45)
[2017-07-19] MEDS ORDERED: METOPROLOL TARTRATE 50 MG TAB PO ONE (11:45)
[2017-07-19] MEDS ORDERED: hydrALAZINE HCL 25 MG TAB PO ONE (11:45)
[2017-07-19] MEDS ORDERED: amLODIPine BESYLATE 5 MG TAB PO ONE (11:45)
[2017-07-19 13:14] VITALS: BP 156/112
[2017-07-19] MEDS ORDERED: EPOETIN ALFA 10,000 UNIT/1 ML VIAL IV ONE ×2 (13:30→13:45)
[2017-07-19] MEDS ORDERED: LEVOFLOXACIN 250MG 50 ML IV SCH (15:00)
[2017-07-19 16:39] VITALS: BP 157/99
[2017-07-19] MEDS: clonazePAM 0.5 MG TAB PO SCH ×2 (16:55→22:07)
[2017-07-19] MEDS: METOPROLOL TARTRATE 50 MG TAB PO SCH (22:07)
[2017-07-20] MEDS: MORPHINE SULFATE 4 MG/ML SYR/VIAL IV PRN ×4 (04:45→21:35)
[2017-07-20] MEDS: diphenhdrAMINE HCL 50 MG/1 ML VL IV PRN ×4 (04:49→21:34)
[2017-07-20 05:14] VITALS: BP 154/97
[2017-07-20] MEDS: SODIUM CHLOR 0.9% PF (SALINE LOCK) 10ML VIAL IV SCH ×5 (05:21→21:36)
[2017-07-20] MEDS: cloNIDine HCL 0.1 MG TAB PO SCH ×3 (05:22→21:35)
[2017-07-20] MEDS: clonazePAM 0.5 MG TAB PO SCH ×3 (05:23→21:36)
[2017-07-20 06:03] LABS: Eosinophils # (auto) 0.4 uL; Hemoglobin 7.6 g/dL (12.2-16.2); Lymphocytes # (auto) 0.9 uL; Monocytes # (auto) 0.2 uL
[2017-07-20 06:05] LABS: Basophils # (auto) 0 uL; Basophils % (auto) 0.9 % (0.0-2.0); Eosinophils % (auto) 8.2 % (0.0-7.0); Hematocrit 22.4 % (36.0-46.0); Lymphocytes % (auto) 19.5 % (10.0-50.0); Mean Corpuscular Hemoglobin 33.1 pg (28.0-32.0); Mean Corpuscular Volume 97.5 fL (80.0-100.0); Monocytes % (auto) 5.3 % (0.0-12.0); Neutrophils % (auto) 66.1 % (37.0-80.0); Nucleated Red Blood Cells % 0.2 %; Platelet Count (auto) 159 10^3/uL (140-450); Red Cell Distribution Width 16.2 % (11.8-14.3); White Blood Cell 4.6 10^3/uL (4.4-10.8)
[2017-07-20 06:27] LABS: BUN/Creatinine Ratio 4.4; Calcium 8.5 mg/dL (8.5-10.1); Potassium 4.7 mmol/L (3.5-5.1)
[2017-07-20] MEDS: SEVELAMER 800 MG TAB PO SCH ×3 (07:55→18:00)
[2017-07-20 08:00] VITALS: BP 158/88
[2017-07-20 09:00] VITALS: BP_SYST 158; BP_SYST 163; BP_DIAS 87; BP_DIAS 88
[2017-07-20] MEDS ORDERED: amLODIPine BESYLATE 5 MG TAB PO SCH (10:00)
[2017-07-20] MEDS: LOSARTAN POTASSIUM 50 MG TAB PO SCH (11:07)
[2017-07-20] MEDS: METOPROLOL TARTRATE 50 MG TAB PO SCH ×2 (11:09→21:37)
[2017-07-20] MEDS: B-COMPLEX W/ C & FOLIC ACID(NEPHROVITE TAB) PO SCH (11:09)
[2017-07-20] MEDS: hydrALAZINE HCL 25 MG TAB PO SCH ×2 (11:09→21:36)
[2017-07-20] MEDS: FAMOTIDINE 20 MG TAB PO SCH (11:09)
[2017-07-20] MEDS ORDERED: amLODIPine BESYLATE 5 MG TAB PO ONE (11:30)
[2017-07-20 12:54] VITALS: BP 128/97
[2017-07-20 16:39] VITALS: BP 142/92
[2017-07-20] MEDS: IPRATROPIUM BROM 0.5 MG/2.5ML INH SOL NEB PRN (20:28)
[2017-07-20] MEDS: ALBUTEROL SULF 2.5 MG/0.5ML(0.5%) NEB SOLN NEB PRN (20:29)
[2017-07-20 22:28] VITALS: BP 152/109
[2017-07-20] MEDS: cloNIDine HCL 0.1 MG TAB PO PRN (23:32)
[2017-07-21] VITALS (7 sets, daily range): BP systolic 149–171; BP diastolic 98–110
[2017-07-21] MEDS: SODIUM CHLOR 0.9% PF (SALINE LOCK) 10ML VIAL IV SCH ×5 (05:12→20:46)
[2017-07-21] MEDS: cloNIDine HCL 0.1 MG TAB PO SCH ×4 (05:12→22:29)
[2017-07-21] MEDS: clonazePAM 0.5 MG TAB PO SCH ×3 (05:12→22:30)
[2017-07-21] MEDS: MORPHINE SULFATE 4 MG/ML SYR/VIAL IV PRN ×3 (05:13→16:17)
[2017-07-21] MEDS: diphenhdrAMINE HCL 50 MG/1 ML VL IV PRN ×3 (05:13→20:43)
[2017-07-21 05:52] LABS: Basophils # (auto) 0.1 uL; Eosinophils # (auto) 0.4 uL; Monocytes # (auto) 0.3 uL; Neutrophils # (auto) 2.9 uL
[2017-07-21 05:58] LABS: Basophils % (auto) 1.4 % (0.0-2.0); Eosinophils % (auto) 8.6 % (0.0-7.0); Hematocrit 24.3 % (36.0-46.0); Hemoglobin 8.2 g/dL (12.2-16.2); Lymphocytes # (auto) 1.4 uL; Lymphocytes % (auto) 26.6 % (10.0-50.0); Mean Corpuscular Hemoglobin 32.7 pg (28.0-32.0); Mean Corpuscular Hgb Conc. 33.6 g/dL (32.0-36.0); Mean Corpuscular Volume 97.5 fL (80.0-100.0); Monocytes % (auto) 6.7 % (0.0-12.0); Neutrophils % (auto) 56.7 % (37.0-80.0); Platelet Count (auto) 172 10^3/uL (140-450); White Blood Cell 5.1 10^3/uL (4.4-10.8)
[2017-07-21 06:19] LABS: Calcium 9.2 mg/dL (8.5-10.1)
[2017-07-21] MEDS: SEVELAMER 800 MG TAB PO SCH ×3 (07:47→17:47)
[2017-07-21] MEDS: IPRATROPIUM BROM 0.5 MG/2.5ML INH SOL NEB PRN (09:10)
[2017-07-21] MEDS: ALBUTEROL SULF 2.5 MG/0.5ML(0.5%) NEB SOLN NEB PRN (09:10)
[2017-07-21] MEDS: LOSARTAN POTASSIUM 50 MG TAB PO SCH (09:49)
[2017-07-21] MEDS: hydrALAZINE HCL 25 MG TAB PO SCH ×2 (09:49→22:29)
[2017-07-21] MEDS: FAMOTIDINE 20 MG TAB PO SCH (09:51)
[2017-07-21] MEDS: amLODIPine BESYLATE 5 MG TAB PO SCH (09:51)
[2017-07-21] MEDS: B-COMPLEX W/ C & FOLIC ACID(NEPHROVITE TAB) PO SCH (09:51)
[2017-07-21] MEDS: METOPROLOL TARTRATE 50 MG TAB PO SCH ×2 (09:51→22:29)
[2017-07-21] MEDS ORDERED: HEPARIN SODIUM (PORCINE) 5000 UNITS/ML 1ML VIAL IV ONE (12:30)
[2017-07-21] MEDS ORDERED: EPOETIN ALFA 10,000 UNIT/1 ML VIAL IV ONE (12:30)
[2017-07-21] MEDS ORDERED: DOXAZOSIN MESYL 2 MG TAB PO ONE (13:15)
[2017-07-21] MEDS: cloNIDine HCL 0.1 MG TAB PO PRN (20:42)
[2017-07-22 05:00] VITALS: BP 112/68
[2017-07-22] MEDS: diphenhdrAMINE HCL 50 MG/1 ML VL IV PRN ×3 (05:30→14:10)
[2017-07-22] MEDS: cloNIDine HCL 0.1 MG TAB PO SCH ×2 (05:30→14:10)
[2017-07-22] MEDS: clonazePAM 0.5 MG TAB PO SCH ×2 (05:30→14:10)
[2017-07-22] MEDS: SODIUM CHLOR 0.9% PF (SALINE LOCK) 10ML VIAL IV SCH ×3 (05:31→13:33)
[2017-07-22 06:53] LABS: Eosinophils # (auto) 0.4 uL; Hemoglobin 7.8 g/dL (12.2-16.2); Lymphocytes # (auto) 1.1 uL; Monocytes # (auto) 0.3 uL; Monocytes % (auto) 7.3 % (0.0-12.0); Neutrophils # (auto) 1.9 uL; White Blood Cell 3.7 10^3/uL (4.4-10.8)
[2017-07-22 06:57] LABS: Basophils # (auto) 0.1 uL; Basophils % (auto) 1.4 % (0.0-2.0); Lymphocytes % (auto) 29.5 % (10.0-50.0); Mean Corpuscular Hemoglobin 32.9 pg (28.0-32.0); Mean Corpuscular Volume 96.6 fL (80.0-100.0); Neutrophils % (auto) 51.8 % (37.0-80.0); Nucleated Red Blood Cells % 0.1 %; Platelet Count (auto) 167 10^3/uL (140-450); Red Blood Cells 2.38 10^6/uL (4.0-5.20); Red Cell Distribution Width 15.9 % (11.8-14.3)
[2017-07-22 07:00] LABS: BUN/Creatinine Ratio 4.8; Calcium 9.1 mg/dL (8.5-10.1); Potassium 4.1 mmol/L (3.5-5.1)
[2017-07-22 08:00] VITALS: BP 121/82
[2017-07-22] MEDS: SEVELAMER 800 MG TAB PO SCH ×2 (08:33→13:32)
[2017-07-22] MEDS: METOPROLOL TARTRATE 50 MG TAB PO SCH (09:18)
[2017-07-22] MEDS: B-COMPLEX W/ C & FOLIC ACID(NEPHROVITE TAB) PO SCH (09:19)
[2017-07-22] MEDS: hydrALAZINE HCL 25 MG TAB PO SCH (09:19)
[2017-07-22] MEDS: amLODIPine BESYLATE 5 MG TAB PO SCH (09:20)
[2017-07-22] MEDS: LOSARTAN POTASSIUM 50 MG TAB PO SCH (09:22)
[2017-07-22] MEDS: FAMOTIDINE 20 MG TAB PO SCH (09:45)
[2017-07-22 12:00] VITALS: BP 121/79
[2017-07-22 13:34] VITALS: BP 155/79
[2017-07-22] MEDS: HYDROcodone-ACET 5/325MG TAB PO PRN (15:05)
[2017-07-22 16:50] VITALS: BP 112/75
== END 2017-07-22 17:00 | disposition home or self-care (01) | DRG 139 ==
LOC: ER 11:09 → WEST WING 11:10
PROVIDERS: ADMIT Internal Medicine; ATTEND Internal Medicine Pulmonary Disease
PROC: 02HV33Z Insertion of Infusion Device into Superior Vena Cava, Percutaneous Approach (ICD-10-PCS; 2017-07-18)
PROC: 5A1D70Z Performance of Urinary Filtration, Intermittent, Less than 6 Hours Per Day (ICD-10-PCS; principal; 2017-07-19)
PROC: 5A1D70Z Performance of Urinary Filtration, Intermittent, Less than 6 Hours Per Day (ICD-10-PCS; 2017-07-21)
DX: J18.1 Lobar pneumonia, unspecified organism (principal); I50.43 Acute on chronic combined systolic (congestive) and diastolic (congestive) heart failure; N18.6 End stage renal disease; I42.9 Cardiomyopathy, unspecified; J45.901 Unspecified asthma with (acute) exacerbation; K86.1 Other chronic pancreatitis; I13.2 Hypertensive heart and chronic kidney disease with heart failure and with stage 5 chronic kidney disease, or end stage renal disease; D63.1 Anemia in chronic kidney disease; F11.10 Opioid abuse, uncomplicated; G40.909 Epilepsy, unspecified, not intractable, without status epilepticus; G89.29 Other chronic pain; Z82.49 Family history of ischemic heart disease and other diseases of the circulatory system; Z99.2 Dependence on renal dialysis; Z83.3 Family history of diabetes mellitus; Z91.14 Patient's other noncompliance with medication regimen; Z88.1 Allergy status to other antibiotic agents; Z88.5 Allergy status to narcotic agent; Z91.018 Allergy to other foods; Z79.899 Other long term (current) drug therapy; Z90.5 Acquired absence of kidney
CPT/HCPCS: 36415; 36569; 71045; 71046; 80048; 80053; 80202; 82962; 83605; 83735; 83880; 84443; 84484; 85007; 85025; 85027; 85610; 85730; 87040; 87081; 87400; 90935; 93005; 94640; 94761; 96365; 96375; 99291; J0885; J1885; J1956; J2405; J7060

== ENCOUNTER 2017-08-15 12:21 | Emergency (ER) | payer MEDICAID ==
[~2017-08-15] VITALS: Ht 160 cm; Wt 54.4 kg
[~2017-08-15 12:21] MED LIST changes: +HYDR-4298 PO
[2017-08-15 12:30] VITALS: BP 192/134
[2017-08-15] MEDS ORDERED: LABETALOL HCL 5 MG/ML ML 20ML VIAL IV ONE (13:30)
[2017-08-15 13:56] LABS: Basophils # (auto) 0.1 uL; Basophils % (auto) 1.2 % (0.0-2.0); Eosinophils # (auto) 0.6 uL; Eosinophils % (auto) 7.9 % (0.0-7.0); Hematocrit 29.9 % (36.0-46.0); Lymphocytes # (auto) 1.1 uL; Lymphocytes % (auto) 16.3 % (10.0-50.0); Mean Corpuscular Hemoglobin 32.4 pg (28.0-32.0); Mean Corpuscular Hgb Conc. 33.3 g/dL (32.0-36.0); Mean Corpuscular Volume 97.2 fL (80.0-100.0); Monocytes # (auto) 0.4 uL; Monocytes % (auto) 6.4 % (0.0-12.0); Neutrophils # (auto) 4.7 uL; Neutrophils % (auto) 68.2 % (37.0-80.0); Nucleated Red Blood Cells % 0.1 %; Red Blood Cells 3.08 10^6/uL (4.0-5.20); Red Cell Distribution Width 17.7 % (11.8-14.3)
[2017-08-15 14:16] LABS: Albumin 3.5 g/dL (3.4-5.0); Alkaline Phosphatase 141 U/L (45-117); Anion Gap 13 (5-15); Aspartate Aminotransferase 599 U/L (15-37); BUN/Creatinine Ratio 5.7; Bilirubin, Total 1.2 mg/dL (0.2-1.0); Blood Urea Nitrogen 46 mg/dL (7-18); Calcium 9.6 mg/dL (8.5-10.1); Carbon Dioxide 28 mmol/L (21-32); Chloride 96 mmol/L (98-107); GFR African American 8 mL/min; GFR Non-African American 6 mL/min; Glucose 112 mg/dL (74-106); Potassium 4.4 mmol/L (3.5-5.1); Sodium 137 mmol/L (136-145); Total Protein 7.6 g/dL (6.4-8.2)
[2017-08-15 17:01] LABS: Alanine Aminotransferase > 1000 U/L (13-56)
[2017-08-15 18:24] LABS: Platelet Count (auto) 136 10^3/uL (140-450)
== END 2017-08-15 15:43 | disposition left against medical advice (07) ==
LOC: ER 12:21
DX: I12.0 Hypertensive chronic kidney disease with stage 5 chronic kidney disease or end stage renal disease (principal); N18.6 End stage renal disease; Z99.2 Dependence on renal dialysis; Z88.1 Allergy status to other antibiotic agents; Z88.6 Allergy status to analgesic agent; Z91.018 Allergy to other foods
CPT/HCPCS: 36415; 80053; 84484; 85025; 93005; 94761

== ENCOUNTER 2017-10-17 14:44 | Inpatient (IN) | payer MEDICAID ==
[~2017-10-17] VITALS: Ht 160 cm; Wt 55.9 kg
[~2017-10-17 14:44] MED LIST changes: -MEGE40TA15 PO; +METO10TA3 PO; +PANT40T PO
[2017-10-17] MEDS ORDERED: cloNIDine HCL 0.1 MG TAB PO ONE (15:45)
[2017-10-17] MEDS ORDERED: ONDANSETRON HCL 4 MG/2 ML VIAL IV ONE (17:00)
[2017-10-17] MEDS ORDERED: METOCLOPRAMIDE HCL 5MG/ml INJ 2ml VIAL IV ONE (17:00)
[2017-10-17 17:27] LABS: Basophils # (auto) 0.1 uL; Lymphocytes # (auto) 0.8 uL; Monocytes # (auto) 0.2 uL; White Blood Cell 5.2 10^3/uL (4.4-10.8)
[2017-10-17 17:28] LABS: Eosinophils # (auto) 0.1 uL; Eosinophils % (auto) 1.7 % (0.0-7.0); Hematocrit 24.3 % (36.0-46.0); Lymphocytes % (auto) 15.7 % (10.0-50.0); Mean Corpuscular Hemoglobin 32.6 pg (28.0-32.0); Mean Corpuscular Volume 98.5 fL (80.0-100.0); Monocytes % (auto) 4.3 % (0.0-12.0); Neutrophils % (auto) 77.3 % (37.0-80.0); Nucleated Red Blood Cells % 0.2 %; Platelet Count (auto) 199 10^3/uL (140-450); Red Blood Cells 2.47 10^6/uL (4.0-5.20); Red Cell Distribution Width 18.5 % (11.8-14.3)
[2017-10-17 17:39] LABS: Albumin 3.5 g/dL (3.4-5.0); BUN/Creatinine Ratio 4.3; Bilirubin, Total 0.8 mg/dL (0.2-1.0); Calcium 9.1 mg/dL (8.5-10.1); Magnesium 2.9 mg/dL (1.6-2.6); Potassium 4.6 mmol/L (3.5-5.1); Total Protein 6.9 g/dL (6.4-8.2)
[2017-10-17] MEDS: NICARDIPINE 25MG/250ML BAG KIT 250 ML IV SCH ×2 (17:53→22:30)
[2017-10-17] MEDS ORDERED: MORPHINE SULFATE 4 MG/ML SYR/VIAL IV PRN (18:15)
[2017-10-17] MEDS ORDERED: NITROGLYCERIN 0.4 MG SL TAB SL PRN (18:15)
[2017-10-17] MEDS ORDERED: TEMAZEPAM 15 MG CAP PO PRN (18:15)
[2017-10-17] MEDS ORDERED: HYDROcodone-ACET 5/325MG TAB PO PRN (18:15)
[2017-10-17] MEDS ORDERED: LORazepam 0.5 MG TAB PO PRN (18:15)
[2017-10-17] MEDS ORDERED: ACETAMINOPHEN 500 MG TAB PO PRN (18:15)
[2017-10-17] MEDS ORDERED: ENALAPRIL MALEATE 10 MG TAB PO ONE (18:45)
[2017-10-17] MEDS ORDERED: amLODIPine BESYLATE 5 MG TAB PO ONE (18:45)
[2017-10-17 18:49] LABS: CRP High Sensitivity 0.79 mg/dL (< 0.3)
[2017-10-17] MEDS: hydrALAZINE HCL 25 MG TAB PO SCH (18:59)
[2017-10-17] MEDS: METOPROLOL TARTRATE 50 MG TAB PO SCH (18:59)
[2017-10-17] MEDS ORDERED: ALBUTEROL SULF 2.5 MG/0.5ML(0.5%) NEB SOLN NEB PRN (19:45)
[2017-10-17] MEDS ORDERED: cefTRIAXone 1GM/10ml IVPUSH 10 ML IV ONE (19:45)
[2017-10-17] MEDS: PROMETHAZINE HCL 25 MG/ML 1ML IV PRN (20:11)
[2017-10-17] MEDS ORDERED: AZITHROMYCIN 500MG/ 250ML 250 ML IV ONE (20:30)
[2017-10-17 22:00] VITALS: BP 133/72
[2017-10-17] MEDS: METOCLOPRAMIDE HCL 10 MG TAB PO SCH (22:11)
[2017-10-17] MEDS: PANTOPRAZOLE 40 MG TAB PO SCH (22:11)
[2017-10-17] MEDS: DOCUSATE SOD 100 MG CAP PO SCH (22:11)
[2017-10-17] MEDS: cloNIDine HCL 0.1 MG TAB PO SCH (22:12)
[2017-10-17 22:40] VITALS: BP 133/72
[2017-10-17] MEDS: ALBUTEROL SULF 2.5 MG/0.5ML(0.5%) NEB SOLN NEB SCH (22:52)
[2017-10-17 23:50] VITALS: BP 133/72
[2017-10-18] VITALS (7 sets, daily range): BP systolic 124–141; BP diastolic 69–95
[2017-10-18] MEDS: MORPHINE SULFATE 4 MG/ML SYR/VIAL IV PRN ×6 (00:21→21:38)
[2017-10-18] MEDS: ALBUTEROL SULF 2.5 MG/0.5ML(0.5%) NEB SOLN NEB SCH ×3 (05:52→18:48)
[2017-10-18] MEDS: cloNIDine HCL 0.1 MG TAB PO SCH ×3 (06:17→21:40)
[2017-10-18] MEDS: METOCLOPRAMIDE HCL 10 MG TAB PO SCH ×4 (06:17→21:39)
[2017-10-18] MEDS: SEVELAMER 800 MG TAB PO SCH ×3 (08:56→18:22)
[2017-10-18] MEDS: PROMETHAZINE HCL 25 MG/ML 1ML IV PRN ×4 (08:57→21:38)
[2017-10-18] MEDS ORDERED: diphenhdrAMINE HCL 50 MG/1 ML VL IV ONE (09:00)
[2017-10-18] MEDS ORDERED: HEPARIN 1,000 UNITS/ml 1ML VIAL IV ONE (09:00)
[2017-10-18] MEDS ORDERED: EPOETIN ALFA 10,000 UNIT/1 ML VIAL IV ONE (09:00)
[2017-10-18] MEDS: cefTRIAXone 1GM/10ml IVPUSH 10 ML IV SCH (13:31)
[2017-10-18] MEDS: AZITHROMYCIN 500MG/ 250ML 250 ML IV SCH (13:32)
[2017-10-18] MEDS: DOCUSATE SOD 100 MG CAP PO SCH ×3 (13:33→22:00)
[2017-10-18] MEDS: PANTOPRAZOLE 40 MG TAB PO SCH ×2 (13:33→21:39)
[2017-10-18] MEDS: hydrALAZINE HCL 25 MG TAB PO SCH ×2 (13:34→21:49)
[2017-10-18] MEDS: METOPROLOL TARTRATE 50 MG TAB PO SCH ×2 (13:34→21:39)
[2017-10-18] MEDS: amLODIPine BESYLATE 5 MG TAB PO SCH (13:35)
[2017-10-18] MEDS: ENALAPRIL MALEATE 10 MG TAB PO SCH (13:40)
[2017-10-18 14:03] LABS: Basophils # (auto) 0 uL; Basophils % (auto) 1.4 % (0.0-2.0); Eosinophils # (auto) 0.2 uL; Eosinophils % (auto) 5.7 % (0.0-7.0); Hematocrit 23.9 % (36.0-46.0); Hemoglobin 7.9 g/dL (12.2-16.2); Lymphocytes # (auto) 0.7 uL; Mean Corpuscular Hemoglobin 32.3 pg (28.0-32.0); Mean Corpuscular Hgb Conc. 33.2 g/dL (32.0-36.0); Mean Corpuscular Volume 97.4 fL (80.0-100.0); Monocytes # (auto) 0.2 uL; Neutrophils # (auto) 1.5 uL; Neutrophils % (auto) 56.9 % (37.0-80.0); Platelet Count (auto) 186 10^3/uL (140-450); Red Blood Cells 2.45 10^6/uL (4.0-5.20); Red Cell Distribution Width 18.4 % (11.8-14.3); White Blood Cell 2.7 10^3/uL (4.4-10.8)
[2017-10-18 14:30] LABS: Albumin 3.3 g/dL (3.4-5.0); BUN/Creatinine Ratio 3.3; Bilirubin, Total 0.8 mg/dL (0.2-1.0); Calcium 8.6 mg/dL (8.5-10.1); Potassium 3.3 mmol/L (3.5-5.1); Total Protein 6.7 g/dL (6.4-8.2)
[2017-10-18] MEDS: HYOSCYAMINE SULF 0.125 MG TAB PO PRN (18:22)
[2017-10-19] MEDS: ALBUTEROL SULF 2.5 MG/0.5ML(0.5%) NEB SOLN NEB SCH ×4 (00:06→19:28)
[2017-10-19] MEDS: PROMETHAZINE HCL 25 MG/ML 1ML IV PRN ×3 (01:38→21:50)
[2017-10-19] MEDS: MORPHINE SULFATE 4 MG/ML SYR/VIAL IV PRN ×5 (01:44→21:50)
[2017-10-19 05:30] VITALS: BP 137/87
[2017-10-19] MEDS: METOCLOPRAMIDE HCL 10 MG TAB PO SCH ×4 (06:38→21:51)
[2017-10-19] MEDS: cloNIDine HCL 0.1 MG TAB PO SCH ×3 (06:38→21:51)
[2017-10-19] MEDS: HYOSCYAMINE SULF 0.125 MG TAB PO PRN (06:38)
[2017-10-19 08:05] VITALS: BP 137/87
[2017-10-19] MEDS: SEVELAMER 800 MG TAB PO SCH ×3 (08:30→17:43)
[2017-10-19 09:00] VITALS: BP 143/98
[2017-10-19] MEDS: DOCUSATE SOD 100 MG CAP PO SCH ×2 (10:31→21:51)
[2017-10-19] MEDS: METOPROLOL TARTRATE 50 MG TAB PO SCH ×2 (10:33→21:50)
[2017-10-19] MEDS: cefTRIAXone 1GM/10ml IVPUSH 10 ML IV SCH (10:33)
[2017-10-19] MEDS: ENALAPRIL MALEATE 10 MG TAB PO SCH (10:38)
[2017-10-19] MEDS: amLODIPine BESYLATE 5 MG TAB PO SCH (10:40)
[2017-10-19] MEDS: hydrALAZINE HCL 25 MG TAB PO SCH ×2 (10:41→21:51)
[2017-10-19] MEDS: PANTOPRAZOLE 40 MG TAB PO SCH ×2 (10:41→21:50)
[2017-10-19] MEDS: AZITHROMYCIN 500MG/ 250ML 250 ML IV SCH (11:00)
[2017-10-19 13:00] VITALS: BP 117/78
[2017-10-19 17:00] VITALS: BP 117/78
[2017-10-19] MEDS ORDERED: SODIUM CHL 0.9% 1000 ML BAG XX ONE (17:15)
[2017-10-19] MEDS ORDERED: EPOETIN ALFA 10,000 UNIT/1 ML VIAL IV ONE (17:15)
[2017-10-19 22:00] VITALS: BP 135/53
[2017-10-20] MEDS: ALBUTEROL SULF 2.5 MG/0.5ML(0.5%) NEB SOLN NEB SCH ×3 (00:39→12:00)
[2017-10-20] MEDS: PROMETHAZINE HCL 25 MG/ML 1ML IV PRN ×2 (04:08→09:38)
[2017-10-20] MEDS: MORPHINE SULFATE 4 MG/ML SYR/VIAL IV PRN ×2 (04:08→09:38)
[2017-10-20 05:00] VITALS: BP 145/100
[2017-10-20] MEDS: cloNIDine HCL 0.1 MG TAB PO SCH (05:31)
[2017-10-20] MEDS: METOCLOPRAMIDE HCL 10 MG TAB PO SCH (06:27)
[2017-10-20] MEDS: SEVELAMER 800 MG TAB PO SCH (08:00)
[2017-10-20 09:00] VITALS: BP 148/100
[2017-10-20] MEDS: cefTRIAXone 1GM/10ml IVPUSH 10 ML IV SCH (09:00)
[2017-10-20] MEDS: ENALAPRIL MALEATE 10 MG TAB PO SCH (09:37)
[2017-10-20] MEDS: PANTOPRAZOLE 40 MG TAB PO SCH (09:37)
[2017-10-20] MEDS: amLODIPine BESYLATE 5 MG TAB PO SCH (09:38)
[2017-10-20] MEDS: hydrALAZINE HCL 25 MG TAB PO SCH (09:39)
[2017-10-20] MEDS: AZITHROMYCIN 500MG/ 250ML 250 ML IV SCH (09:39)
[2017-10-20] MEDS: DOCUSATE SOD 100 MG CAP PO SCH (09:40)
[2017-10-20] MEDS: METOPROLOL TARTRATE 50 MG TAB PO SCH (09:40)
== END 2017-10-20 12:33 | disposition home or self-care (01) | DRG 254 ==
LOC: ER 15:05 → TELE 15:06 → TELE-WESTW 22:25
PROVIDERS: ADMIT Internal Medicine; ATTEND Internal Medicine
PROC: 5A1D70Z Performance of Urinary Filtration, Intermittent, Less than 6 Hours Per Day (ICD-10-PCS; principal; 2017-10-18)
DX: K58.9 Irritable bowel syndrome, unspecified (principal); I13.2 Hypertensive heart and chronic kidney disease with heart failure and with stage 5 chronic kidney disease, or end stage renal disease; N18.6 End stage renal disease; E83.41 Hypermagnesemia; I50.9 Heart failure, unspecified; R74.8 Abnormal levels of other serum enzymes; K29.70 Gastritis, unspecified, without bleeding; G89.29 Other chronic pain; Z99.2 Dependence on renal dialysis; Z90.5 Acquired absence of kidney; Z82.3 Family history of stroke; Z86.73 Personal history of transient ischemic attack (TIA), and cerebral infarction without residual deficits
CPT/HCPCS: 36415; 71045; 71046; 74176; 80053; 82150; 82550; 83690; 83735; 83880; 84484; 84702; 85025; 85652; 86141; 87081; 90935; 93005; 94640; 94761; 96374; 96375; J0885

== ENCOUNTER 2017-10-24 15:10 | Inpatient (IN) | payer MEDICAID ==
[~2017-10-24] VITALS: Ht 160 cm; Wt 68.4 kg
[2017-10-24] MEDS ORDERED: HYDROmorphone HCL 2 MG/ML VL IV ONE (20:30)
[2017-10-24] MEDS ORDERED: PROMETHAZINE HCL 25 MG/ML 1ML IV PRN (20:30)
[2017-10-24] MEDS ORDERED: METOCLOPRAMIDE HCL 5MG/ml INJ 2ml VIAL ONE (20:35)
[2017-10-24] MEDS ORDERED: hydrALAZINE HCL 20 MG/ML VL IV ONE ×2 (20:45→23:15)
[2017-10-24] MEDS ORDERED: METOCLOPRAMIDE HCL 5MG/ml INJ 2ml VIAL IV ONE ×2 (20:45→23:30)
[2017-10-24] MEDS ORDERED: LABETALOL HCL 5 MG/ML ML 20ML VIAL IV ONE ×2 (20:45→23:15)
[2017-10-24 21:26] LABS: Basophils # (auto) 0.1 uL; Eosinophils # (auto) 0.1 uL; Eosinophils % (auto) 0.7 % (0.0-7.0); Hematocrit 29.9 % (36.0-46.0); Lymphocytes # (auto) 1.1 uL; Lymphocytes % (auto) 9.8 % (10.0-50.0); Mean Corpuscular Hemoglobin 32.7 pg (28.0-32.0); Mean Corpuscular Hgb Conc. 33.5 g/dL (32.0-36.0); Mean Corpuscular Volume 97.7 fL (80.0-100.0); Monocytes # (auto) 0.4 uL; Monocytes % (auto) 3.3 % (0.0-12.0); Neutrophils # (auto) 9.3 uL; Neutrophils % (auto) 85.2 % (37.0-80.0); Nucleated Red Blood Cells % 0.1 %; Platelet Count (auto) 365 10^3/uL (140-450); Red Blood Cells 3.06 10^6/uL (4.0-5.20); Red Cell Distribution Width 17.7 % (11.8-14.3)
[2017-10-24 21:42] LABS: BUN/Creatinine Ratio 6.6; Calcium 9.9 mg/dL (8.5-10.1); Potassium 4.9 mmol/L (3.5-5.1)
[2017-10-24 21:45] LABS: Total Protein 8.2 g/dL (6.4-8.2)
[2017-10-24 21:49] LABS: INR 1.06 (0.9-1.15); Prothrombin Time 11.6 sec (9.37-12.3)
[2017-10-24] MEDS ORDERED: PROMETHAZINE HCL 25 MG/ML 1ML IV ONE (22:00)
[2017-10-24] MEDS ORDERED: ONDANSETRON HCL 4 MG/2 ML VIAL IV ONE (23:15)
[2017-10-24] MEDS ORDERED: MORPHINE SULFATE 4 MG/ML SYR/VIAL IV ONE (23:15)
[2017-10-25] MEDS ORDERED: ACETAMINOPHEN 500 MG TAB PO PRN
[2017-10-25] MEDS ORDERED: HYDROcodone-ACET 5/325MG TAB PO PRN
[2017-10-25] MEDS: NICARDIPINE 25MG/250ML BAG KIT 250 ML IV SCH ×5 (00:06→20:09)
[2017-10-25] MEDS: PROCHLORPERAZINE EDISYLATE 5 MG/ML 2ML VIAL IV PRN ×3 (02:41→22:47)
[2017-10-25] MEDS ORDERED: NICARDIPINE 25MG/250ML BAG KIT 250 ML IV ONE (06:18)
[2017-10-25 07:27] LABS: BUN/Creatinine Ratio 6.7; Calcium 9.6 mg/dL (8.5-10.1); Potassium 4.7 mmol/L (3.5-5.1)
[2017-10-25 07:35] LABS: Basophils # (auto) 0 uL; Basophils % (auto) 0.5 % (0.0-2.0); Eosinophils # (auto) 0 uL; Hematocrit 25.2 % (36.0-46.0); Hemoglobin 8.7 g/dL (12.2-16.2); Lymphocytes # (auto) 0.5 uL; Lymphocytes % (auto) 6.5 % (10.0-50.0); Mean Corpuscular Hgb Conc. 34.5 g/dL (32.0-36.0); Mean Corpuscular Volume 98.6 fL (80.0-100.0); Monocytes # (auto) 0.3 uL; Monocytes % (auto) 3.5 % (0.0-12.0); Neutrophils # (auto) 6.7 uL; Neutrophils % (auto) 89.5 % (37.0-80.0); Platelet Count (auto) 258 10^3/uL (140-450); Red Blood Cells 2.55 10^6/uL (4.0-5.20); Red Cell Distribution Width 17.6 % (11.8-14.3); White Blood Cell 7.4 10^3/uL (4.4-10.8)
[2017-10-25] MEDS: SEVELAMER 800 MG TAB PO SCH ×3 (08:00→18:11)
[2017-10-25] MEDS ORDERED: EPOETIN ALFA 10,000 UNIT/1 ML VIAL IV ONE ×2 (11:15→11:45)
[2017-10-25] MEDS ORDERED: diphenhdrAMINE HCL 50 MG/1 ML VL IV ONE (11:15)
[2017-10-25] MEDS: hydrALAZINE HCL 25 MG TAB PO SCH ×2 (15:10→22:00)
[2017-10-25] MEDS: PANTOPRAZOLE 40 MG/10 ML VIAL IV SCH (15:10)
[2017-10-25] MEDS ORDERED: MORPHINE SULFATE 4 MG/ML SYR/VIAL IV ONE (16:00)
[2017-10-25] MEDS: MORPHINE SULFATE 4 MG/ML SYR/VIAL IV PRN ×2 (18:23→22:47)
[2017-10-26] MEDS ORDERED: NICARDIPINE 25MG/250ML BAG KIT 250 ML IV ONE (01:03)
[2017-10-26] MEDS: NICARDIPINE 25MG/250ML BAG KIT 250 ML IV SCH ×5 (01:38→20:30)
[2017-10-26] MEDS: SEVELAMER 800 MG TAB PO SCH ×3 (08:11→19:00)
[2017-10-26] MEDS: PROCHLORPERAZINE EDISYLATE 5 MG/ML 2ML VIAL IV PRN (08:16)
[2017-10-26] MEDS: MORPHINE SULFATE 4 MG/ML SYR/VIAL IV PRN ×3 (08:16→22:37)
[2017-10-26] MEDS: PANTOPRAZOLE 40 MG/10 ML VIAL IV SCH (10:58)
[2017-10-26] MEDS: hydrALAZINE HCL 25 MG TAB PO SCH ×2 (10:58→22:37)
[2017-10-26] MEDS ORDERED: HYOSCYAMINE SULF 0.125 MG TAB PO PRN (15:30)
[2017-10-26 18:30] VITALS: BP 172/106
[2017-10-26 19:55] VITALS: BP 162/105
[2017-10-26 21:49] VITALS: BP 133/109
[2017-10-26] MEDS: METOCLOPRAMIDE HCL 5MG/ml INJ 2ml VIAL IV SCH (22:36)
[2017-10-27] MEDS: NICARDIPINE 25MG/250ML BAG KIT 250 ML IV SCH ×3 (01:30→11:30)
[2017-10-27] MEDS: MORPHINE SULFATE 4 MG/ML SYR/VIAL IV PRN ×5 (02:44→22:13)
[2017-10-27 05:17] VITALS: BP 180/138
[2017-10-27 06:28] LABS: Basophils # (auto) 0.1 uL; Eosinophils # (auto) 0.2 uL; Hemoglobin 8.4 g/dL (12.2-16.2); Monocytes # (auto) 0.3 uL; Monocytes % (auto) 4.7 % (0.0-12.0); Red Blood Cells 2.51 10^6/uL (4.0-5.20)
[2017-10-27 06:32] LABS: Basophils % (auto) 1.6 % (0.0-2.0); Eosinophils % (auto) 3.5 % (0.0-7.0); Hematocrit 24.8 % (36.0-46.0); Lymphocytes % (auto) 17.4 % (10.0-50.0); Mean Corpuscular Hemoglobin 33.3 pg (28.0-32.0); Mean Corpuscular Hgb Conc. 33.7 g/dL (32.0-36.0); Mean Corpuscular Volume 98.9 fL (80.0-100.0); Neutrophils # (auto) 4.3 uL; Neutrophils % (auto) 72.8 % (37.0-80.0); Nucleated Red Blood Cells % 0.1 %; Platelet Count (auto) 211 10^3/uL (140-450); Red Cell Distribution Width 17.7 % (11.8-14.3); White Blood Cell 5.9 10^3/uL (4.4-10.8)
[2017-10-27] MEDS: METOCLOPRAMIDE HCL 5MG/ml INJ 2ml VIAL IV SCH ×3 (06:45→21:33)
[2017-10-27 06:49] LABS: Albumin 3.4 g/dL (3.4-5.0); BUN/Creatinine Ratio 4.5; Bilirubin, Total 0.9 mg/dL (0.2-1.0); Potassium 4.8 mmol/L (3.5-5.1); Total Protein 6.8 g/dL (6.4-8.2)
[2017-10-27 08:00] VITALS: BP 171/143
[2017-10-27] MEDS: SEVELAMER 800 MG TAB PO SCH ×3 (08:14→18:04)
[2017-10-27] MEDS ORDERED: EPOETIN ALFA 10,000 UNIT/1 ML VIAL IV ONE (09:45)
[2017-10-27] MEDS ORDERED: diphenhdrAMINE HCL 50 MG/1 ML VL IV ONE (09:45)
[2017-10-27] MEDS: hydrALAZINE HCL 25 MG TAB PO SCH ×2 (10:00→21:22)
[2017-10-27] MEDS: PANTOPRAZOLE 40 MG/10 ML VIAL IV SCH (10:00)
[2017-10-27 12:00] VITALS: BP 208/133
[2017-10-27] MEDS: DONNATAL 5ml ORAL Elix (BELLADONNA ALK-PHENOBARB) PO SCH ×2 (14:00→22:13)
[2017-10-27 17:30] VITALS: BP 216/138
[2017-10-27 22:00] VITALS: BP 206/154
[2017-10-28] MEDS: MORPHINE SULFATE 4 MG/ML SYR/VIAL IV PRN ×4 (02:33→15:11)
[2017-10-28] MEDS ORDERED: LABETALOL HCL 5 MG/ML ML 20ML VIAL IV ONE (03:30)
[2017-10-28 05:00] VITALS: BP 187/122
[2017-10-28] MEDS: METOCLOPRAMIDE HCL 5MG/ml INJ 2ml VIAL IV SCH ×2 (06:14→15:11)
[2017-10-28] MEDS: DONNATAL 5ml ORAL Elix (BELLADONNA ALK-PHENOBARB) PO SCH ×2 (06:14→14:00)
[2017-10-28 08:00] VITALS: BP 166/113
[2017-10-28] MEDS: PANTOPRAZOLE 40 MG/10 ML VIAL IV SCH (08:52)
[2017-10-28] MEDS: hydrALAZINE HCL 25 MG TAB PO SCH ×2 (08:53→17:41)
[2017-10-28] MEDS: SEVELAMER 800 MG TAB PO SCH ×3 (08:53→17:41)
[2017-10-28 12:00] VITALS: BP 204/119
[2017-10-28] MEDS ORDERED: cloNIDine HCL 0.1 MG TAB PO SCH (14:00)
[2017-10-28] MEDS ORDERED: hydrALAZINE HCL 25 MG TAB PO PRN (14:15)
[2017-10-28 14:59] LABS: Albumin 3.4 g/dL (3.4-5.0); BUN/Creatinine Ratio 3.7; Basophils # (auto) 0.1 uL; Basophils % (auto) 1.3 % (0.0-2.0); Calcium 9.3 mg/dL (8.5-10.1); Eosinophils # (auto) 0.2 uL; Eosinophils % (auto) 2.8 % (0.0-7.0); Hematocrit 24.8 % (36.0-46.0); Hemoglobin 8.6 g/dL (12.2-16.2); Lymphocytes # (auto) 0.6 uL; Lymphocytes % (auto) 10.3 % (10.0-50.0); Mean Corpuscular Hemoglobin 33.9 pg (28.0-32.0); Mean Corpuscular Hgb Conc. 34.7 g/dL (32.0-36.0); Mean Corpuscular Volume 97.5 fL (80.0-100.0); Monocytes # (auto) 0.3 uL; Monocytes % (auto) 4.8 % (0.0-12.0); Neutrophils # (auto) 4.7 uL; Neutrophils % (auto) 80.8 % (37.0-80.0); Nucleated Red Blood Cells % 0.1 %; Platelet Count (auto) 164 10^3/uL (140-450); Potassium 4.5 mmol/L (3.5-5.1); Red Blood Cells 2.54 10^6/uL (4.0-5.20); Red Cell Distribution Width 16.8 % (11.8-14.3); White Blood Cell 5.8 10^3/uL (4.4-10.8)
[2017-10-28] MEDS ORDERED: METOPROLOL TARTRATE 50 MG TAB PO ONE (15:00)
[2017-10-28] MEDS ORDERED: NIFEdipine ER 30 MG TAB PO ONE (15:00)
[2017-10-28 15:02] LABS: Bilirubin, Total 1.3 mg/dL (0.2-1.0); Total Protein 7.1 g/dL (6.4-8.2)
[2017-10-28 17:00] VITALS: BP 159/129
[2017-10-28] MEDS: MORPHINE SULFATE 8mg/ml INJ SDV IV PRN (21:21)
[2017-10-28 22:00] VITALS: BP 135/90
[2017-10-29] MEDS: METOCLOPRAMIDE HCL 5MG/ml INJ 2ml VIAL IV SCH ×3 (00:20→14:00)
[2017-10-29] MEDS: hydrALAZINE HCL 25 MG TAB PO SCH ×3 (00:21→14:00)
[2017-10-29] MEDS: DONNATAL 5ml ORAL Elix (BELLADONNA ALK-PHENOBARB) PO SCH ×3 (00:22→14:00)
[2017-10-29] MEDS: cloNIDine HCL 0.1 MG TAB PO SCH ×2 (00:22→10:00)
[2017-10-29] MEDS: METOPROLOL TARTRATE 50 MG TAB PO SCH ×2 (00:23→10:00)
[2017-10-29] MEDS: MORPHINE SULFATE 8mg/ml INJ SDV IV PRN ×3 (02:29→13:22)
[2017-10-29 04:35] VITALS: BP 138/70
[2017-10-29] MEDS: SEVELAMER 800 MG TAB PO SCH ×2 (08:43→13:23)
[2017-10-29] MEDS ORDERED: diphenhdrAMINE HCL 50 MG/1 ML VL IV ONE ×2 (08:45→10:45)
[2017-10-29] MEDS ORDERED: EPOETIN ALFA 10,000 UNIT/1 ML VIAL IV ONE (09:00)
[2017-10-29] MEDS ORDERED: SODIUM CHL 0.9% 1000 ML BAG XX ONE (09:00)
[2017-10-29 09:07] VITALS: BP 153/97
[2017-10-29] MEDS ORDERED: NIFEdipine ER 30 MG TAB PO SCH ×2 (10:00)
[2017-10-29 13:00] VITALS: BP 137/89
[2017-10-29] MEDS: PANTOPRAZOLE 40 MG/10 ML VIAL IV SCH (13:20)
[2017-10-29 14:59] VITALS: BP 137/89
== END 2017-10-29 16:00 | disposition home or self-care (01) | DRG 282 ==
LOC: ER 15:10 → TELE 15:11 → TELE-CENTR 10-26 18:15
PROVIDERS: ADMIT Nurse Practitioner Family; ATTEND Internal Medicine
PROC: 5A1D70Z Performance of Urinary Filtration, Intermittent, Less than 6 Hours Per Day (ICD-10-PCS; principal; 2017-10-25)
PROC: 5A1D70Z Performance of Urinary Filtration, Intermittent, Less than 6 Hours Per Day (ICD-10-PCS; 2017-10-27)
PROC: 02HV33Z Insertion of Infusion Device into Superior Vena Cava, Percutaneous Approach (ICD-10-PCS; 2017-10-28)
PROC: 5A1D70Z Performance of Urinary Filtration, Intermittent, Less than 6 Hours Per Day (ICD-10-PCS; 2017-10-29)
DX: K85.90 Acute pancreatitis without necrosis or infection, unspecified (principal); I13.2 Hypertensive heart and chronic kidney disease with heart failure and with stage 5 chronic kidney disease, or end stage renal disease; N25.81 Secondary hyperparathyroidism of renal origin; N18.6 End stage renal disease; K86.1 Other chronic pancreatitis; D64.9 Anemia, unspecified; I50.9 Heart failure, unspecified; G89.4 Chronic pain syndrome; K29.70 Gastritis, unspecified, without bleeding; K29.80 Duodenitis without bleeding; K58.9 Irritable bowel syndrome, unspecified; Z86.73 Personal history of transient ischemic attack (TIA), and cerebral infarction without residual deficits; Z90.5 Acquired absence of kidney; Z91.14 Patient's other noncompliance with medication regimen; Z99.2 Dependence on renal dialysis; Z88.1 Allergy status to other antibiotic agents; Z91.018 Allergy to other foods; Z88.8 Allergy status to other drugs, medicaments and biological substances; Z84.1 Family history of disorders of kidney and ureter
CPT/HCPCS: 36415; 71045; 71250; 74176; 76705; 78264; 80048; 80053; 82150; 82784; 83516; 83605; 83690; 84702; 85025; 85610; 86255; 87040; 87081; 90935; 93005; 96374; 96375; C9113; J0885; J1642; J2270

== ENCOUNTER 2017-11-02 11:40 | Inpatient (IN) | payer MEDICAID ==
[~2017-11-02] VITALS: Ht 160 cm; Wt 53.1 kg
[2017-11-02] MEDS ORDERED: ONDANSETRON HCL 4 MG/2 ML VIAL IV ONE (12:15)
[2017-11-02] MEDS ORDERED: SODIUM CHLORIDE 0.9% 500 ML IVB ONE (12:40)
[2017-11-02 12:53] LABS: Basophils # (auto) 0.1 uL; Eosinophils # (auto) 0 uL; Eosinophils % (auto) 0.2 % (0.0-7.0); Hematocrit 26.4 % (36.0-46.0); Lymphocytes # (auto) 0.6 uL; Lymphocytes % (auto) 9.7 % (10.0-50.0); Mean Corpuscular Hemoglobin 32.9 pg (28.0-32.0); Mean Corpuscular Hgb Conc. 34.2 g/dL (32.0-36.0); Monocytes # (auto) 0.4 uL; Monocytes % (auto) 6.7 % (0.0-12.0); Neutrophils # (auto) 4.8 uL; Neutrophils % (auto) 82.4 % (37.0-80.0); Platelet Count (auto) 222 10^3/uL (140-450); Red Blood Cells 2.75 10^6/uL (4.0-5.20); Red Cell Distribution Width 15.9 % (11.8-14.3); White Blood Cell 5.8 10^3/uL (4.4-10.8)
[2017-11-02 13:07] LABS: INR 1.05 (0.9-1.15); Partial Thromboplastin Time 27.3 sec (23.78-33.04); Prothrombin Time 11.2 sec (9.27-12.13)
[2017-11-02 13:09] LABS: Albumin 3.9 g/dL (3.4-5.0); BUN/Creatinine Ratio 3.3; Calcium 10.2 mg/dL (8.5-10.1); Magnesium 2.4 mg/dL (1.6-2.6); Potassium 3.6 mmol/L (3.5-5.1)
[2017-11-02 13:12] LABS: Bilirubin, Total 1.2 mg/dL (0.2-1.0); Total Protein 8.3 g/dL (6.4-8.2)
[2017-11-02] MEDS ORDERED: PANTOPRAZOLE 40 MG/10 ML VIAL IV ONE ×2 (13:15→14:30)
[2017-11-02] MEDS ORDERED: MORPHINE SULFATE INJECTION 1 ML ONE ×2 (13:36→14:23)
[2017-11-02] MEDS ORDERED: hydrALAZINE HCL 20 MG/ML VL IV ONE ×2 (13:45→14:15)
[2017-11-02] MEDS ORDERED: MORPHINE SULFATE 4 MG/ML SYR/VIAL IV ONE ×2 (13:45→14:30)
[2017-11-02] MEDS ORDERED: cloNIDine HCL 0.1 MG TAB PO ONE ×2 (14:15→15:00)
[2017-11-02] MEDS ORDERED: METOPROLOL TARTRATE 50 MG TAB PO ONE ×2 (14:15→15:00)
[2017-11-02] MEDS ORDERED: LABETALOL HCL 5 MG/ML ML 20ML VIAL IV PRN ×3 (14:15)
[2017-11-02] MEDS ORDERED: hydrALAZINE HCL 25 MG TAB PO ONE (14:15)
[2017-11-02] MEDS ORDERED: amLODIPine BESYLATE 5 MG TAB PO ONE ×2 (14:15→15:00)
[2017-11-02] MEDS ORDERED: LABETALOL HCL 5 MG/ML ML 20ML VIAL IV ONE (14:15)
[2017-11-02] MEDS ORDERED: TEMAZEPAM 15 MG CAP PO PRN (14:30)
[2017-11-02] MEDS ORDERED: ACETAMINOPHEN 500 MG TAB PO PRN (14:30)
[2017-11-02] MEDS ORDERED: LORazepam 0.5 MG TAB PO PRN (14:30)
[2017-11-02] MEDS ORDERED: cefTRIAXone 1GM/10ml IVPUSH 10 ML IV ONE (14:30)
[2017-11-02] MEDS ORDERED: NITROGLYCERIN 0.4 MG SL TAB SL PRN (14:30)
[2017-11-02] MEDS ORDERED: MORPHINE SULFATE 4 MG/ML SYR/VIAL IV PRN ×3 (14:30)
[2017-11-02] MEDS ORDERED: cloNIDine HCL 0.1 MG TAB PO SCH (14:45)
[2017-11-02] MEDS ORDERED: PANTOPRAZOLE 40 MG TAB PO ONE (15:00)
[2017-11-02] MEDS ORDERED: DOCUSATE SOD 100 MG CAP PO ONE (15:00)
[2017-11-02] MEDS ORDERED: hydrALAZINE HCL 25 MG TAB PO SCH (15:00)
[2017-11-02] MEDS ORDERED: SEVELAMER 800 MG TAB PO ONE (15:00)
[2017-11-02] MEDS: PROMETHAZINE HCL 25 MG/ML 1ML IV PRN ×2 (15:11→19:54)
[2017-11-02] MEDS: hydrALAZINE HCL 25 MG TAB PO SCH ×2 (15:22→22:39)
[2017-11-02] MEDS ORDERED: MORPHINE SULFATE 8mg/ml INJ SDV IV PRN (16:00)
[2017-11-02] MEDS: MORPHINE SULFATE 8mg/ml INJ SDV IV PRN ×3 (16:01→20:00)
[2017-11-02 18:05] LABS: Hemoglobin 8.1 g/dL (12.2-16.2)
[2017-11-02 18:07] LABS: Hematocrit 23.7 % (36.0-46.0)
[2017-11-02] MEDS: metroNIDAZOLE 500MG/100ML 100 ML IV SCH (18:30)
[2017-11-02] MEDS: SEVELAMER 800 MG TAB PO SCH (18:42)
[2017-11-02] MEDS: DOCUSATE SOD 100 MG CAP PO SCH (22:37)
[2017-11-02] MEDS: PANTOPRAZOLE 40 MG TAB PO SCH (22:38)
[2017-11-02] MEDS: METOPROLOL TARTRATE 50 MG TAB PO SCH (22:39)
[2017-11-02] MEDS: cloNIDine HCL 0.1 MG TAB PO SCH (22:39)
[2017-11-03] MEDS: metroNIDAZOLE 500MG/100ML 100 ML IV SCH ×5 (00:10→23:32)
[2017-11-03 01:34] LABS: Hemoglobin 7.4 g/dL (12.2-16.2)
[2017-11-03 01:36] LABS: Hematocrit 21.3 % (36.0-46.0)
[2017-11-03] MEDS: MORPHINE SULFATE 8mg/ml INJ SDV IV PRN ×5 (04:13→23:33)
[2017-11-03] MEDS: hydrALAZINE HCL 25 MG TAB PO SCH ×3 (05:56→21:28)
[2017-11-03] MEDS: cloNIDine HCL 0.1 MG TAB PO SCH ×3 (05:56→21:29)
[2017-11-03 06:40] LABS: Eosinophils # (auto) 0.1 uL; Hematocrit 20.5 % (36.0-46.0); Monocytes # (auto) 0.4 uL; Red Cell Distribution Width 15.9 % (11.8-14.3); White Blood Cell 3.2 10^3/uL (4.4-10.8)
[2017-11-03 06:42] LABS: Basophils # (auto) 0 uL; Basophils % (auto) 1.4 % (0.0-2.0); Eosinophils % (auto) 3.1 % (0.0-7.0); Hemoglobin 7.2 g/dL (12.2-16.2); Lymphocytes % (auto) 29.6 % (10.0-50.0); Mean Corpuscular Hemoglobin 33.6 pg (28.0-32.0); Mean Corpuscular Hgb Conc. 34.9 g/dL (32.0-36.0); Mean Corpuscular Volume 96.1 fL (80.0-100.0); Neutrophils # (auto) 1.8 uL; Neutrophils % (auto) 54.9 % (37.0-80.0); Nucleated Red Blood Cells % 0.1 %; Platelet Count (auto) 153 10^3/uL (140-450); Red Blood Cells 2.13 10^6/uL (4.0-5.20)
[2017-11-03 06:52] LABS: Albumin 3.2 g/dL (3.4-5.0); BUN/Creatinine Ratio 3.1; Bilirubin, Total 0.7 mg/dL (0.2-1.0); Calcium 9.2 mg/dL (8.5-10.1); Potassium 3.8 mmol/L (3.5-5.1); Total Protein 6.4 g/dL (6.4-8.2)
[2017-11-03] MEDS ORDERED: diphenhdrAMINE HCL 50 MG/1 ML VL ONE (08:11)
[2017-11-03] MEDS ORDERED: LIDOCAINE VISCOUS 2% 15ML UD ONE (08:11)
[2017-11-03] MEDS ORDERED: SODIUM CHLORIDE LOCK 10 ML ONE (08:11)
[2017-11-03] MEDS ORDERED: MIDAZOLAM HCL 5 MG/ML-1ML VIAL ONE (08:11)
[2017-11-03] MEDS ORDERED: fentaNYL CITRATE 100 MCG/2 ML VL ONE (08:11)
[2017-11-03] MEDS: SEVELAMER 800 MG TAB PO SCH ×3 (09:41→18:34)
[2017-11-03] MEDS: cefTRIAXone 1GM/10ml IVPUSH 10 ML IV SCH (09:44)
[2017-11-03] MEDS ORDERED: EPINEPHrine HCL 1 MG/10 ML SYRG ONE (09:47)
[2017-11-03] MEDS ORDERED: PANTOPRAZOLE 40 MG/10 ML VIAL IV SCH (10:00)
[2017-11-03] MEDS: DOCUSATE SOD 100 MG CAP PO SCH ×2 (12:01→21:29)
[2017-11-03] MEDS: METOPROLOL TARTRATE 50 MG TAB PO SCH ×2 (12:10→21:30)
[2017-11-03] MEDS: PANTOPRAZOLE 40 MG TAB PO SCH ×2 (12:10→21:30)
[2017-11-03] MEDS: amLODIPine BESYLATE 5 MG TAB PO SCH (12:11)
[2017-11-03] MEDS: PROMETHAZINE HCL 25 MG/ML 1ML IV PRN ×2 (13:32→18:49)
[2017-11-03 20:38] VITALS: BP 144/44
[2017-11-03] MEDS ORDERED: diphenhdrAMINE HCL 25 MG CAP PO ONE (21:15)
[2017-11-03 22:00] VITALS: BP 109/61
[2017-11-04] VITALS (7 sets, daily range): BP systolic 118–139; BP diastolic 58–98
[2017-11-04] MEDS: MORPHINE SULFATE 8mg/ml INJ SDV IV PRN ×4 (04:33→20:28)
[2017-11-04] MEDS: metroNIDAZOLE 500MG/100ML 100 ML IV SCH ×3 (05:12→18:47)
[2017-11-04] MEDS: hydrALAZINE HCL 25 MG TAB PO SCH ×3 (05:43→22:19)
[2017-11-04] MEDS: cloNIDine HCL 0.1 MG TAB PO SCH ×3 (05:43→22:21)
[2017-11-04] MEDS: SEVELAMER 800 MG TAB PO SCH ×3 (08:28→18:47)
[2017-11-04] MEDS ORDERED: SODIUM CHL 0.9% 1000 ML BAG XX ONE (10:00)
[2017-11-04] MEDS: DOCUSATE SOD 100 MG CAP PO SCH ×2 (10:00→22:00)
[2017-11-04] MEDS: METOPROLOL TARTRATE 50 MG TAB PO SCH ×2 (10:00→22:21)
[2017-11-04] MEDS: cefTRIAXone 1GM/10ml IVPUSH 10 ML IV SCH (10:00)
[2017-11-04] MEDS: PANTOPRAZOLE 40 MG TAB PO SCH ×2 (10:00→22:17)
[2017-11-04] MEDS: amLODIPine BESYLATE 5 MG TAB PO SCH (10:00)
[2017-11-04] MEDS ORDERED: EPOETIN ALFA 10,000 UNIT/1 ML VIAL IV ONE (10:00)
[2017-11-04] MEDS ORDERED: diphenhdrAMINE HCL 50 MG/1 ML VL IV ONE ×2 (16:45→17:30)
[2017-11-05] MEDS: MORPHINE SULFATE 8mg/ml INJ SDV IV PRN ×5 (01:45→21:14)
[2017-11-05 05:00] VITALS: BP 158/89
[2017-11-05] MEDS: metroNIDAZOLE 500MG/100ML 100 ML IV SCH ×5 (06:00→23:34)
[2017-11-05] MEDS: cloNIDine HCL 0.1 MG TAB PO SCH ×3 (06:25→21:15)
[2017-11-05] MEDS: hydrALAZINE HCL 25 MG TAB PO SCH ×3 (06:26→21:16)
[2017-11-05 06:59] LABS: Basophils # (auto) 0.1 uL; Basophils % (auto) 1.6 % (0.0-2.0); Eosinophils # (auto) 0.3 uL; Eosinophils % (auto) 7.7 % (0.0-7.0); Hemoglobin 8.5 g/dL (12.2-16.2); Lymphocytes # (auto) 1.2 uL; Lymphocytes % (auto) 27.8 % (10.0-50.0); Mean Corpuscular Hemoglobin 33.3 pg (28.0-32.0); Mean Corpuscular Hgb Conc. 35.5 g/dL (32.0-36.0); Monocytes # (auto) 0.4 uL; Monocytes % (auto) 10.6 % (0.0-12.0); Neutrophils # (auto) 2.2 uL; Neutrophils % (auto) 52.3 % (37.0-80.0); Nucleated Red Blood Cells % 0.2 %; Platelet Count (auto) 158 10^3/uL (140-450); Red Blood Cells 2.55 10^6/uL (4.0-5.20); Red Cell Distribution Width 16.9 % (11.8-14.3); White Blood Cell 4.2 10^3/uL (4.4-10.8)
[2017-11-05 07:14] LABS: Potassium 3.9 mmol/L (3.5-5.1)
[2017-11-05 07:18] LABS: Albumin 3.1 g/dL (3.4-5.0); BUN/Creatinine Ratio 3.1; Calcium 9.3 mg/dL (8.5-10.1)
[2017-11-05 07:21] LABS: Bilirubin, Total 0.6 mg/dL (0.2-1.0); Total Protein 6.6 g/dL (6.4-8.2)
[2017-11-05 08:16] VITALS: BP 141/84
[2017-11-05] MEDS: SEVELAMER 800 MG TAB PO SCH ×3 (08:54→18:02)
[2017-11-05] MEDS: cefTRIAXone 1GM/10ml IVPUSH 10 ML IV SCH (08:59)
[2017-11-05] MEDS: amLODIPine BESYLATE 5 MG TAB PO SCH (10:00)
[2017-11-05] MEDS: DOCUSATE SOD 100 MG CAP PO SCH ×3 (10:00→21:21)
[2017-11-05] MEDS: METOPROLOL TARTRATE 50 MG TAB PO SCH ×2 (11:40→21:15)
[2017-11-05] MEDS: PANTOPRAZOLE 40 MG TAB PO SCH ×2 (11:41→21:14)
[2017-11-05 12:30] VITALS: BP 118/70
[2017-11-05 16:15] VITALS: BP 131/80
[2017-11-05 22:00] VITALS: BP 145/94
[2017-11-06] MEDS: MORPHINE SULFATE 8mg/ml INJ SDV IV PRN ×2 (01:58→06:58)
[2017-11-06 05:00] VITALS: BP 150/93
[2017-11-06] MEDS: metroNIDAZOLE 500MG/100ML 100 ML IV SCH (05:40)
[2017-11-06] MEDS: hydrALAZINE HCL 25 MG TAB PO SCH (05:41)
[2017-11-06] MEDS: cloNIDine HCL 0.1 MG TAB PO SCH (05:41)
[2017-11-06 09:10] VITALS: BP 149/95
[2017-11-06 09:20] VITALS: BP 149/95
[2017-11-06] MEDS ORDERED: LORazepam 0.5 MG TAB PO PRN (09:45)
== END 2017-11-06 10:30 | disposition home or self-care (01) | DRG 282 ==
LOC: ER 11:56 → OVERFLOW 11:57 → TELE-EAST 11-03 20:40
PROVIDERS: ADMIT Internal Medicine; ATTEND Internal Medicine
PROC: 30233N1 Transfusion of Nonautologous Red Blood Cells into Peripheral Vein, Percutaneous Approach (ICD-10-PCS; 2017-11-02)
PROC: 0DJ08ZZ Inspection of Upper Intestinal Tract, Via Natural or Artificial Opening Endoscopic (ICD-10-PCS; 2017-11-03)
PROC: 5A1D70Z Performance of Urinary Filtration, Intermittent, Less than 6 Hours Per Day (ICD-10-PCS; principal; 2017-11-04)
DX: K85.90 Acute pancreatitis without necrosis or infection, unspecified (principal); I13.2 Hypertensive heart and chronic kidney disease with heart failure and with stage 5 chronic kidney disease, or end stage renal disease; K22.6 Gastro-esophageal laceration-hemorrhage syndrome; N18.6 End stage renal disease; K29.81 Duodenitis with bleeding; K86.1 Other chronic pancreatitis; F11.20 Opioid dependence, uncomplicated; I50.9 Heart failure, unspecified; D63.8 Anemia in other chronic diseases classified elsewhere; G43.A0 Cyclical vomiting, in migraine, not intractable; G89.29 Other chronic pain; K21.9 Gastro-esophageal reflux disease without esophagitis; K58.9 Irritable bowel syndrome, unspecified; F41.9 Anxiety disorder, unspecified; G47.00 Insomnia, unspecified; I16.0 Hypertensive urgency; Z99.2 Dependence on renal dialysis; Z82.3 Family history of stroke; Z90.5 Acquired absence of kidney; Z88.1 Allergy status to other antibiotic agents; Z91.018 Allergy to other foods; Z79.899 Other long term (current) drug therapy
CPT/HCPCS: 36415; 71045; 74176; 80053; 82150; 83690; 83735; 84702; 85014; 85018; 85025; 85045; 85610; 85652; 85730; 86850; 86900; 86901; 86920; 90935; 96361; 96374; 96375; C9113; G0378; J0885; J1642; J2250; J2270; J2405; J3490

== ENCOUNTER 2017-11-20 13:30 | Inpatient (IN) | payer MEDICAID ==
[~2017-11-20] VITALS: Ht 157.5 cm; Wt 49.9 kg
[2017-11-20] VITALS (7 sets, daily range): BP systolic 72–185; BP diastolic 53–160
[2017-11-20] MEDS ORDERED: InsuLIN REG 1unit/0.01ml Soln (100units/ml) ONE ×2 (13:40→23:15)
[2017-11-20] MEDS ORDERED: PROPOFOL 100 ML IV SCH ×2 (14:00→15:48)
[2017-11-20] MEDS ORDERED: PROPOFOL 100 ML IV ONE (14:14)
[2017-11-20] MEDS ORDERED: PIPERACILLIN-TAZOB 3.375GM 100 ML IV ONE (14:15)
[2017-11-20 14:25] LABS: Hemoglobin 9.8 g/dL (12.2-16.2); Mean Corpuscular Hgb Conc. 31.3 g/dL (32.0-36.0); White Blood Cell 12.9 10^3/uL (4.4-10.8)
[2017-11-20 14:27] LABS: Basophils # (auto) 0.1 uL; Basophils % (auto) 0.6 % (0.0-2.0); Eosinophils # (auto) 0.1 uL; Eosinophils % (auto) 0.8 % (0.0-7.0); Hematocrit 31.1 % (36.0-46.0); Lymphocytes # (auto) 3.6 uL; Lymphocytes % (auto) 28.1 % (10.0-50.0); Mean Corpuscular Volume 105.3 fL (80.0-100.0); Monocytes # (auto) 0.2 uL; Monocytes % (auto) 1.4 % (0.0-12.0); Neutrophils # (auto) 8.9 uL; Neutrophils % (auto) 69.1 % (37.0-80.0); Nucleated Red Blood Cells % 0.2 %; Red Blood Cells 2.96 10^6/uL (4.0-5.20); Red Cell Distribution Width 17.7 % (11.8-14.3)
[2017-11-20 14:38] LABS: INR 1.32 (0.9-1.15); Partial Thromboplastin Time 28.7 sec (23.78-33.04); Prothrombin Time 13.9 sec (9.27-12.13)
[2017-11-20 14:46] LABS: Albumin 3.4 g/dL (3.4-5.0); Calcium 11.8 mg/dL (8.5-10.1); Magnesium 3.5 mg/dL (1.6-2.6); Potassium 5.5 mmol/L (3.5-5.1)
[2017-11-20 14:50] LABS: Bilirubin, Total 1.5 mg/dL (0.2-1.0); Total Protein 7.1 g/dL (6.4-8.2)
[2017-11-20 14:52] LABS: BUN/Creatinine Ratio 6.4
[2017-11-20 14:55] LABS: Platelet Count (auto) 110 10^3/uL (140-450)
[2017-11-20 15:01] LABS: Lactic Acid w/Reflex 16.2 mmol/L (0.4-2.0)
[2017-11-20] MEDS ORDERED: LABETALOL HCL 5 MG/ML ML 20ML VIAL IV ONE (15:31)
[2017-11-20] MEDS ORDERED: PANTOPRAZOLE 40 MG/10 ML VIAL IV ONE (15:45)
[2017-11-20] MEDS ORDERED: FAMOTIDINE (10MG/ML) 2ML VL IV ONE (15:45)
[2017-11-20] MEDS ORDERED: MIDAZOLAM DRIP 50 mg/50mL 50 ML IV SCH (15:48)
[2017-11-20] MEDS ORDERED: SODIUM CHLORIDE 0.9% 1,000 ML IV SCH (15:52)
[2017-11-20] MEDS ORDERED: SODIUM BICARBONATE 8.4 % INJ 50ML VIAL IV ONE (16:00)
[2017-11-20] MEDS ORDERED: NALBUPHINE HCL 10 MG/1ml INJECTION IV PRN (16:00)
[2017-11-20] MEDS ORDERED: DEXTROSE (50%) 50ML SYRG IV PRN (16:00)
[2017-11-20] MEDS ORDERED: NITROGLYCERIN 0.4 MG SL TAB SL PRN (16:00)
[2017-11-20] MEDS ORDERED: cefTRIAXone 1GM/10ml IVPUSH 10 ML IV ONE (16:00)
[2017-11-20] MEDS ORDERED: ONDANSETRON HCL 4 MG/2 ML VIAL IV PRN (16:00)
[2017-11-20] MEDS ORDERED: LORazepam 2MG/ML-1ML VIAL IV PRN (16:00)
[2017-11-20] MEDS ORDERED: MORPHINE SULF INJ 2 MG/ML SYRINGE 1ML IV PRN (16:00)
[2017-11-20] MEDS: LABETALOL HCL 5 MG/ML ML 20ML VIAL IV PRN ×3 (16:01→20:38)
[2017-11-20] MEDS ORDERED: SODIUM CHLORIDE 0.9% 3,000 ML IV PRN (17:00)
[2017-11-20] MEDS ORDERED: InsuLIN REG 1unit/0.01ml Soln (100units/ml) SC SCH (18:00)
[2017-11-20] MEDS ORDERED: ACCU-CHEK COMFORT CURVE STRIP VI SCH (18:00)
[2017-11-20] MEDS ORDERED: ALBUTEROL SULF 2.5 MG/0.5ML(0.5%) NEB SOLN NEB SCH (18:00)
[2017-11-20] MEDS ORDERED: IPRATROPIUM BROM 0.5 MG/2.5ML INH SOL NEB SCH (18:00)
[2017-11-20] MEDS ORDERED: DEXTROSE 10% 1,000 ML IV SCH (18:15)
[2017-11-20] MEDS: ACCU-CHEK COMFORT CURVE STRIP VI SCH ×4 (19:15→22:00)
[2017-11-20 21:16] LABS: Lactic Acid w/Reflex 3.3 mmol/L (0.4-2.0)
[2017-11-20] MEDS ORDERED: LINEZOLID 600MG/300ML 300 ML IV SCH (22:00)
[2017-11-20] MEDS ORDERED: SODIUM BICARBONATE 8.4% INJ 50ML SYRINGE ONE ×2 (22:37→23:12)
[2017-11-20] MEDS ORDERED: NOREPINEPHRINE 8 MG/250ML KIT 250 ML IV ONE (23:00)
[2017-11-20 23:07] LABS: Albumin 2.5 g/dL (3.4-5.0)
[2017-11-20 23:12] LABS: Potassium 6.3 mmol/L (3.5-5.1)
[2017-11-20] MEDS: NOREPINEPHRINE 8 MG/250ML KIT 250 ML IV PRN (23:12)
[2017-11-20] MEDS ORDERED: CALCIUM GLUC 4.65meq/50ml D5AE 50 ML IV ONE (23:13)
[2017-11-20] MEDS ORDERED: DEXTROSE 50% SYRINGE 50 ML IV ONE (23:14)
[2017-11-20 23:15] LABS: Bilirubin, Total 1.2 mg/dL (0.2-1.0)
[2017-11-20 23:16] LABS: Calcium 15.9 mg/dL (8.5-10.1)
[2017-11-20] MEDS ORDERED: SODIUM POLYSTYRENE SULF 15GM/60ML SUSP ONE (23:17)
[2017-11-20] MEDS: PHENYLEPHRINE IV 250 ML IV ONE ×2 (23:21→23:40)
[2017-11-20] MEDS ORDERED: ALBUMIN 25% 100 ML IV ONE (23:32)
[2017-11-21] MEDS: NOREPINEPHRINE 8 MG/250ML KIT 250 ML IV PRN (03:24)
[2017-11-21] MEDS ORDERED: EPINEPHrine HCL 250 ML IV SCH (03:26)
[2017-11-21] MEDS ORDERED: PHENYLEPHRINE INJ 20 MG in SODIUM CHL 0.9% 250 ML IV SCH (03:26)
[2017-11-21] MEDS ORDERED: SODIUM BICARBONATE 50ML VIAL 100 ML in D5W 5% 1,000 ML IV SCH (03:30)
[2017-11-21] MEDS ORDERED: cefTRIAXone 1GM/10ml IVPUSH 10 ML IV SCH (09:00)
[2017-11-21] MEDS ORDERED: PANTOPRAZOLE 40 MG/10 ML VIAL IV SCH (10:00)
[2017-11-21] MEDS ORDERED: ENOXAPARIN SOD 30 MG/0.3 ML SYRINGE SC SCH (10:00)
[2017-11-21] MEDS ORDERED: FAMOTIDINE (10MG/ML) 2ML VL IV SCH (10:00)
[2017-11-21] MEDS ORDERED: DEXTROSE (50%) 50ML SYRG IV ONE (13:23)
[2017-11-21] MEDS ORDERED: SODIUM BICARBONATE 8.4% INJ 50ML SYRINGE IV ONE (13:23)
[2017-11-21] MEDS ORDERED: CALCIUM CHLOR(10%) 100MG/ML 10ML SYRINGE IV ONE (13:23)
[2017-11-21] MEDS ORDERED: ATROPINE SULF 0.5 MG/5ML SYR IV ONE (13:23)
[2017-11-21] MEDS ORDERED: EPINEPHrine HCL 1 MG/10 ML SYRG IV ONE (13:23)
== END 2017-11-20 23:58 | disposition expired | DRG 720 ==
LOC: EDBD 13:30 → ER 13:30 → OVERFLOW 13:31
PROVIDERS: ADMIT Internal Medicine; ATTEND Internal Medicine
PROC: 5A1935Z Respiratory Ventilation, Less than 24 Consecutive Hours (ICD-10-PCS; principal; 2017-11-20)
PROC: 0BH17EZ Insertion of Endotracheal Airway into Trachea, Via Natural or Artificial Opening (ICD-10-PCS; 2017-11-20)
PROC: 5A12012 Performance of Cardiac Output, Single, Manual (ICD-10-PCS; 2017-11-20)
PROC: 02HV33Z Insertion of Infusion Device into Superior Vena Cava, Percutaneous Approach (ICD-10-PCS; 2017-11-20)
DX: A41.9 Sepsis, unspecified organism (principal); I46.9 Cardiac arrest, cause unspecified; J96.00 Acute respiratory failure, unspecified whether with hypoxia or hypercapnia; J69.0 Pneumonitis due to inhalation of food and vomit; I13.2 Hypertensive heart and chronic kidney disease with heart failure and with stage 5 chronic kidney disease, or end stage renal disease; D68.9 Coagulation defect, unspecified; N18.6 End stage renal disease; E87.2 Acidosis; E11.21 Type 2 diabetes mellitus with diabetic nephropathy; E83.41 Hypermagnesemia; D63.8 Anemia in other chronic diseases classified elsewhere; E87.5 Hyperkalemia; I50.9 Heart failure, unspecified; K21.9 Gastro-esophageal reflux disease without esophagitis; E11.65 Type 2 diabetes mellitus with hyperglycemia; G40.909 Epilepsy, unspecified, not intractable, without status epilepticus; E11.22 Type 2 diabetes mellitus with diabetic chronic kidney disease; Q24.9 Congenital malformation of heart, unspecified; Z88.1 Allergy status to other antibiotic agents; Z99.2 Dependence on renal dialysis; Z91.018 Allergy to other foods; Z79.899 Other long term (current) drug therapy
CPT/HCPCS: 36415; 36600; 51702; 70450; 71045; 74176; 80053; 82805; 82962; 83036; 83605; 83735; 85025; 85610; 85730; 87040; 87070; 87077; 87186; 87205; 92950; 93005; 94002; 94640; 96361; 96365; 96375; 99291; C9113; G0378; J0610; J1815; J2704; J3490; P9047